=== PATIENT | male | born 1940 | race Caucasian/White ===

== ENCOUNTER → 2018-02-07 | Outpatient (CLI) | payer MEDICARE ==
--- NOTE | 2018-02-07 16:10 | US ---
EXAMINATION TYPE: US duplex aorta DATE OF EXAM: 02/07/2018 COMPARISON: NONE CLINICAL HISTORY: 77-year-old male F17.200 Nicotine dependence. No symptoms per patient Technique: Multiple sonographic images of the abdominal aorta were obtained. FINDINGS: Abdominal Aorta: Proximal: 2.0 x 2.3cm Mid: 2.0 x 1.9cm Distal: 1.5 x 1.6cm Bifurcation: rt 1.3cm lt 1.3cm Atherosclerotic changes noted within IMPRESSION: No sonographic evidence for any significant ectasia or aneurysm of the abdominal aorta.
== END | disposition home or self-care (01) ==
LOC: RADUSWWP 14:12
PROVIDERS: ATTEND Family Medicine
DX: F17.200 Nicotine dependence, unspecified, uncomplicated (principal)
CPT/HCPCS: 93979

== ENCOUNTER → 2018-07-04 | Outpatient (CLI) | payer MEDICARE ==
--- NOTE | 2018-07-04 08:32 | MR ---
EXAMINATION TYPE: MR brain wo con DATE OF EXAM: 07/04/2018 COMPARISON: NONE HISTORY: Unspecified cerebral infarction per order. Mini stroke July 2016 per patient. TECHNIQUE: Multiplanar, multisequence imaging of the brain and brainstem is performed without IV cont rast. FINDINGS: Diffusion weighted images demonstrate no evidence of a recent infarct or other diffusion abnormality. There is no worrisome extra-axial fluid collection. There is ventricular and sulcal prominence consis tent with diffuse cerebral atrophy. Some foci of T2 hyperintensity are seen in the periventricular wh ite matter. Midline structures demonstrate normal morphology. The craniocervical junction appears within normal limits. Normal vascular flow voids are present. The visualized sinuses are clear and the globes are i ntact. IMPRESSION: 1. No evidence of a recent infarct or large old infarct. 2. Background moderate diffuse cerebral atrophy and mild to minimal chronic small vessel ischemic bossman nge.
== END | disposition home or self-care (01) ==
LOC: RADMRIMAIN 07:34
PROVIDERS: ATTEND Family Medicine
DX: I67.82 Cerebral ischemia (principal); G31.9 Degenerative disease of nervous system, unspecified
CPT/HCPCS: 70551

== ENCOUNTER → 2018-10-24 | Outpatient (CLI) | payer MEDICARE ==
--- NOTE | 2018-10-24 12:28 | US ---
EXAMINATION TYPE: US kidneys/renal and bladder DATE OF EXAM: 10/24/2018 COMPARISON: NONE CLINICAL HISTORY: Chronic kidney disease 3 N18.3. EXAM MEASUREMENTS: Right Kidney: 12.3 x 5.3 x 4.4 cm Left Kidney: 11.3 x 4.7 x 4.4 cm Right Kidney: Simple appearing cyst noted measuring 2.3 x 2.0 x 2.1cm Left Kidney: several simple cysts noted, largest measuring 6.5 x 5.0 x 6.7cm, and 2.2 x 2.5 x 2.2cm Bladder: wnl Bilateral Jets seen: Yes IMPRESSION: 1. Bilateral renal cysts.
== END ==
LOC: RADUSWWP 10:44
PROVIDERS: ATTEND Internal Medicine Nephrology
DX: N28.1 Cyst of kidney, acquired (principal)
CPT/HCPCS: 76770

== ENCOUNTER → 2019-02-07 | Outpatient (CLI) | payer MEDICARE ==
--- NOTE | 2019-02-07 12:26 | XR ---
EXAMINATION TYPE: XR pelvis AP view DATE OF EXAM: 02/07/2019 COMPARISON: NONE HISTORY: Pain The osseous structures are intact and arthropathy of the hip joints is noted. Calcification in the pr oximal left femur is nonspecific. Vascular calcifications in the pelvis. No erosive changes. Degenera tive change lower lumbar spine.. No acute fracture is seen. Visualized bowel gas pattern is nonspec ific. IMPRESSION: 1. 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
--- NOTE | 2019-02-07 12:27 | XR ---
EXAMINATION TYPE: XR thoracic spine 2V DATE OF EXAM: 02/07/2019 COMPARISON: NONE HISTORY: Pain Alignment is anatomic. There is no compression deformities. There is multilevel moderate to severe d egenerative disc disease with hypertrophic spurring. Diffuse osteopenia noted. Pedicles intact. Calci fications right upper quadrant may represent gallstones. IMPRESSION: 1. Multilevel degenerative disc disease. 2. Correlate for gallstones.
--- NOTE | 2019-02-07 12:29 | XR ---
EXAMINATION TYPE: XR cervical spine limited DATE OF EXAM: 02/07/2019 COMPARISON: NONE HISTORY: Pain TECHNIQUE: Three views are submitted. FINDINGS: The odontoid is intact. There are no compression deformities. The prevertebral soft tissue structur es are within normal limits. Lung apices are clear. Hypertrophic spurring noted anteriorly. Multileve l facet arthropathy seen. Mild multilevel degenerative disc disease. IMPRESSION: 1. Multilevel hypertrophic and mild degenerative disc disease. 2. Multilevel facet arthropathy. Recommend follow-up MRI to assess for neural foraminal encroachment.
== END | disposition home or self-care (01) ==
LOC: RADXRMAIN 10:29
PROVIDERS: ATTEND Chiropractor
DX: M51.34 Other intervertebral disc degeneration, thoracic region (principal); M50.30 Other cervical disc degeneration, unspecified cervical region; M46.92 Unspecified inflammatory spondylopathy, cervical region; M16.0 Bilateral primary osteoarthritis of hip
CPT/HCPCS: 72040; 72070; 72170

== ENCOUNTER → 2021-02-24 | Outpatient (CLI) | payer MEDICARE ==
--- NOTE | 2021-02-24 13:03 | XR ---
EXAMINATION TYPE: XR Hip Complete RT DATE OF EXAM: 02/24/2021 COMPARISON: NONE HISTORY: Pain TECHNIQUE: 2 views submitted FINDINGS: There is no evidence of erosive change or acute fracture. Concentric narrowing the joint space with hypertrophic change of the acetabulum. Vascular calcificati ons noted. IMPRESSION: 1. Moderate arthropathy correlate for femoral acetabular impingement..
--- NOTE | 2021-02-24 13:59 | US ---
EXAMINATION TYPE: US venous doppler duplex LE RT DATE OF EXAM: 02/24/2021 12:16 PM COMPARISON: NONE CLINICAL HISTORY: M79.661 Pain in Rt lower limb. Pain medial right groin and right upper thigh SIDE PERFORMED: Right TECHNIQUE: The lower extremity deep venous system is examined utilizing real time linear array sonog omkar with graded compression, doppler sonography and color-flow sonography. VESSELS IMAGED: Common Femoral Vein Deep Femoral Vein Greater Saphenous Vein * Femoral Vein Popliteal Vein Small Saphenous Vein * Proximal Calf Veins (* superficial vessels) Right Leg: Negative for DVT IMPRESSION: Grayscale, color doppler, spectral doppler imaging performed of the deep veins of the lo wer extremities. There is normal flow, compressibility, vascular waveforms. Incidental note made of shotty lymphadenopathy in the right groin. Correlate clinically.
--- NOTE | 2021-02-24 14:44 | US ---
EXAMINATION TYPE: US groin RT DATE OF EXAM: 02/24/2021 COMPARISON: NONE CLINICAL HISTORY: M79.661. Medial right groin pain noted after boxing up books.Patient having right l eg venous duplex today too. Couple of medial right groin lymph nodes seen with larger node = 1.7 x 1.1 x 0.8cm. No hernia is note d medial right groin with Valsalva Maneuver performed over area of pain. IMPRESSION: 1. Right inguinal shotty adenopathy with largest measuring short axis of 0.8 cm. Correlate clinically .
== END | disposition home or self-care (01) ==
LOC: RADUSWWP 10:47
PROVIDERS: ATTEND Family Medicine
DX: M79.661 Pain in right lower leg (principal); R59.0 Localized enlarged lymph nodes; M16.11 Unilateral primary osteoarthritis, right hip
CPT/HCPCS: 73502

== ENCOUNTER → 2021-04-02 | Outpatient (CLI) | payer MEDICARE ==
--- NOTE | 2021-04-02 13:04 | US ---
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 Follow up. Patient states he has never had anything come back abnormal with his lymph nodes. Right groin scanned. Largest lymph node measured = 1.8 x 1.1 x 0.7 cm Initial benign-appearing tiny lymph node. More prominent nonspecific right groin lymph node noted aft er this with less well-visualized fatty hilum. No concerning fluid collection or groin hernia. IMPRESSION: As above. Findings could reflect reactive infectious or inflammatory etiology. Advise sh ort-term ultrasound follow-up to reassess in 4-6 weeks time.
== END | disposition home or self-care (01) ==
LOC: RADUSWWP 12:13
PROVIDERS: ATTEND Family Medicine
DX: C85.85 Other specified types of non-Hodgkin lymphoma, lymph nodes of inguinal region and lower limb (principal)

== ENCOUNTER → 2021-07-03 | Outpatient (CLI) | payer MEDICARE ==
--- NOTE | 2021-07-04 08:26 | US ---
EXAMINATION TYPE: US groin RT DATE OF EXAM: 07/03/2021 COMPARISON: NONE CLINICAL HISTORY: R59.0 Localized enlarged lymph nodes. Right groin scanned 2 lymph nodes noted measuring 2.0 x 0.7 x 1.1cm and 1.7 x 1.1 x1.8cm Right groin scanned. Largest lymph node measured = 1.8 x 1.1 x 0.7 cm IMPRESSION: Lymph nodes as noted.
== END | disposition home or self-care (01) ==
LOC: RADUSWWP 16:36
PROVIDERS: ATTEND Family Medicine
DX: R59.0 Localized enlarged lymph nodes (principal)

== ENCOUNTER 2023-01-12 08:21 | Inpatient (IN) | payer MEDICARE ==
--- NOTE | 2023-01-12 09:20 | XR ---
EXAMINATION TYPE: XR Hip Complete RT DATE OF EXAM: 01/12/2023 COMPARISON: 02/24/2021 HISTORY: Pain TECHNIQUE: 2 views submitted FINDINGS: There is concentric narrowing of the joint hypertrophic change of the acetabulum. The questionable de formity involving the femoral neck. IMPRESSION: 1. Arthropathy. CT of the right hip recommended to exclude fracture..
--- NOTE | 2023-01-12 10:27 | ED ---
Fall HPI - General Chief Complaint: Fall Stated Complaint: fall Time Seen by Provider: 01/12/23 08:29 Source: patient, family, RN notes reviewed Mode of arrival: EMS Limitations: no limitations - History of Present Illness Initial Comments: This is an 82-year-old male who presents to the emergency department for a fall. Patient was walking into his PCP's office for his annual physical, when he subsequently tripped on a curb and fell, landing on his right side. Currently complaining of pain to the right hip. He is having difficulty moving the leg d ue to the pain. Pain is controlled when sitting still. Denies hitting his head or any loss of consciousness. Patient denies taking any blood thinners. Patient does not have any surgical history. Denies any fevers, chills, sore throat, cough, dyspnea, chest pain, palpitations, abdominal pain, nausea, vomiting, diarrhea, back pain, or headaches. MD Complaint: fall Loss of Consciousness: none Location: other (Right hip pain) Context: tripped/slipped - Related Data Home Medications Medication Instructions Recorded Confirmed Enalapril [Vasotec] 5 mg PO DAILY 08/16/16 01/12/23 Glimepiride 2 mg PO DAILY 08/16/16 01/12/23 Insulin Glargine,Hum.rec.anlog 15 unit SQ DAILY 08/16/16 01/12/23 [Lantus Solostar] Rosuvastatin [Crestor] 20 mg PO DAILY 08/16/16 01/12/23 sitaGLIPtin [Januvia] 50 mg PO HS 08/16/16 01/12/23 Sildenafil [Revatio] 20 mg PO DAILY PRN 01/12/23 01/12/23 Allergies Allergy/AdvReac Type Severity Reaction Status Date / Time No Known Allergies Allergy Verified 01/12/23 09:36 Review of Systems ROS Statement: Those systems with pertinent positive or pertinent negative responses have been documented in the HPI. ROS Other: All systems not noted in ROS Statement are negative. Past Medical History Past Medical History: Diabetes Mellitus, Hyperlipidemia, Hypertension History of Any Multi-Drug Resistant Organisms: None Reported Past Surgical History: No Surgical Hx Reported Past Psychological History: No Psychological Hx Reported Smoking Status: Former smoker, Never smoker Past Alcohol Use History: None Reported Past Drug Use History: None Reported General Exam Limitations: no limitations General appearance: alert, in no apparent distress Head exam: Present: atraumatic, normocephalic, normal inspection Respiratory exam: Present: normal lung sounds bilaterally. Absent: respiratory distress, wheezes, rales, rhonchi, stridor Cardiovascular Exam: Present: regular rate, normal rhythm, normal heart sounds. Absent: systolic murmur, diastolic murmur, rubs, gallop, clicks Extremities exam: Present: other (Tenderness to palpation over the right greater trochanter. External rotation of the right lower extremity. 2+ DP and TP pulses. Capillary refill less than 1 second.) Neurological exam: Present: alert, oriented X3, CN II-XII intact Psychiatric exam: Present: normal affect, normal mood Skin exam: Present: warm, dry, intact, normal color. Absent: rash Course Vital Signs 01/12/23 01/12/23 01/12/23 08:31 10:34 14:00 Temperature 98 F 98.1 F Pulse Rate 88 86 86 Respiratory 18 18 18 Rate Blood Pressure 208/84 155/93 165/69 O2 Sat by Pulse 100 97 98 Oximetry Medical Decision Making - Medical Decision Making This is an 82-year-old male who presents to the emergency department for a fall and right hip pain. Was pt. sent in by a medical professional or institution? @ -No Did you speak to anyone other than the patient for history? @ -No Did you review nursing and triage notes? @ -Yes, and I agree, it is accurate with regards to the patient's symptoms. Were old charts reviewed? @ -No Differential Diagnosis? @ -Differential Leg Injury: Fracture, dislocation, contusion, this is not meant to be an all-inclusive list. X-rays interpreted by me (1pt min.)? @ -X-ray of the right hip obtained. My interpretation identifies an abnormal appearance to the right femoral neck. CT interpreted by me (1pt min.)? @ -Computed tomography scan of the right hip was obtained. My interpretation identifies a right femur intertrochanteric fracture. What testing was considered but not performed? (CT, X-rays, U/S, labs)? Why? @ -None What meds were considered but not given? Why? @ -None Did you discuss the management of the patient with other professionals? @ -Yes, Dr. Garcia, who advised admission. Did you reconcile home meds? @ -No Was smoking cessation discussed for >3mins.? @ -No Was critical care preformed (if so, how long)? @ -No Were there social determinants of health that impacted care today? How? (Homelessness, low income, unemployed, alcoholism, drug addiction, transportation, low edu. Level, literacy, decrease access to med. care, long-term, rehab)? @ -No Was there de-escalation of care discussed even if they declined? (Discuss DNR or withdrawal of care, Hospice)? @ -No What co-morbidities impacted this encounter? (DM, HTN, Smoking, COPD, CAD, Cancer, CVA, Hep., AIDS, mental health diagnosis, sleep apnea, morbid obesity)? @ -HTN, HLD, DM Was patient admitted / discharged? @ -Admitted. X-rays of the right hip were obtained. Findings could not exclude a femoral neck fracture, and a computed tomography scan of the right hip was obtained. Computed tomography scan of the right hip reveals an acute comminuted mildly displaced proximal right femur intertrochanteric fracture. Case discussed with Dr. Garcia, who advised admission with plan for surgical intervention. Preop lab work obtained. Patient will also be kept NPO in the event surgical intervention is warranted today. Patient admitted to orthopedics with medicine on consult for medical management. Undiagnosed new problem with uncertain prognosis? @ -None Drug Therapy requiring intensive monitoring for toxicity (Heparin, Nitro, Insulin, Cardizem)? @ -None Were any procedures done? @ -None Diagnosis/symptom? @ -Right intertrochanteric fracture Acute, or Chronic, or Acute on Chronic? @ -Acute Uncomplicated (without systemic symptoms) or Complicated (systemic symptoms)? @ -Complicated Side effects of treatment? @ -None Exacerbation, Progression, or Severe Exacerbation] @ -Not applicable Poses a threat to life or bodily function? @ -Yes This case was discussed in detail with the attending ED physician, Dr. Ramirez. Presentation, findings, and treatment plan discussed in detail as well. - Lab Data Result diagrams: 01/12/23 11:34 01/12/23 11:34 - Radiology Data Radiology results: report reviewed, image reviewed Disposition Clinical Impression: Intertrochanteric fracture of right femur Disposition: ADMITTED IP TO THIS HOSP
--- NOTE | 2023-01-12 10:27 | CT ---
EXAMINATION TYPE: CT hip RT wo con CT DLP: 537.2 mGycm, Automated exposure control for dose reduction was used. DATE OF EXAM: 01/12/2023 10:08 AM COMPARISON: Extremity radiograph same day. CLINICAL INDICATION:Male, 82 years old with history of Possible femoral neck fracture on x-ray; PHH, right hip pain from fall TECHNIQUE: Axial images were obtained of the right hip without the use of IV contrast. Additional co bertha and sagittal reformatted images and soft tissue and bone window were obtained for review. 3-D r econstruction was created on a separate workstation. FINDINGS: Diffuse bone demineralization. Acute mildly displaced comminuted intertrochanteric fracture of the proximal right femur identified. Mild shortening demonstrated. There no dislocation. There is surrounding edema identified. Small joint effusion. Mild osteoarthritic changes of the right hip. Re maining visualized osseous structures are intact. Vascular sclerosis demonstrated. Prostatomegaly measuring up to 5.4 cm. IMPRESSION: Acute comminuted mildly displaced proximal right femur intertrochanteric fracture.
[2023-01-12] MEDS ORDERED: HYDROmorphone 1 MG/ML 1 ML SYRINGE IVP PRN (11:30)
[2023-01-12] MEDS ORDERED: ONDANSETRON 4 MG/2 ML VIAL IVP PRN (11:30)
[2023-01-12] MEDS ORDERED: HYDROmorphone 0.5 MG/0.5 ML SYRINGE IVP PRN (11:30)
[2023-01-12] MEDS ORDERED: ACETAMINOPHEN TAB 325 MG TAB PO PRN (11:30)
[2023-01-12] MEDS ORDERED: NALOXONE 0.4 MG/ML 1 ML VIAL IV PRN (11:30)
[2023-01-12 11:55] LABS: Basophils % (A) 0 %; Eosinophils # (A) 0.1 k/uL (0-0.7); Eosinophils % (A) 1 %; HCT 41.3 % (39.0-53.0); HGB 13.9 gm/dL (13.0-17.5); Lymphocytes # (A) 0.9 k/uL (1.0-4.8); Lymphocytes % (A) 8 %; MCH 28.8 pg (25.0-35.0); MCHC 33.7 g/dL (31.0-37.0); MCV 85.4 fL (80.0-100.0); Mean Platelet Volume 9.9; Monocytes # (A) 0.4 k/uL (0-1.0); Monocytes % (A) 4 %; Neutrophils # (A) 9.1 k/uL (1.3-7.7); Neutrophils % (A) 86 %; Platelet Count 127 k/uL (150-450); RBC 4.83 m/uL (4.30-5.90); RDW 13.6 % (11.5-15.5); WBC 10.6 k/uL (3.8-10.6)
[2023-01-12 12:13] LABS: Calcium 9.3 mg/dL (8.4-10.2); Potassium 4.7 mmol/L (3.5-5.1); Total Bilirubin 0.6 mg/dL (0.2-1.3); Total Protein 6.5 g/dL (6.3-8.2)
[2023-01-12 12:43] LABS: Partial Thromboplastin Time 22.9 sec (22.0-30.0); Prothrombin Time 10.6 sec (9.0-12.0)
[2023-01-12] MEDS ORDERED: DEXTROSE 50% SYRINGE 50 ML IVP PRN ×2 (14:58)
[2023-01-12 16:02] LABS: Glucose,Whole Blood 219 mg/dL (70-110)
[2023-01-12] MEDS: INSULIN ASPART (NovoLOG) 100 UNIT/ML VIAL SQ SCH ×2 (17:28→20:46)
--- NOTE | 2023-01-12 18:10 | P.CONS ---
History of Present Illness - Reason for Consult Consult date: 01/12/23 Medical Management Requesting physician: Jhonatan Garcia - History of Present Illness History of Presenting Illness: Patient is a very pleasant 82-year-old male with a past medical history of hypertension, hyperlipidemia, chronic kidney disease stage III, and insulin- dependent diabetes mellitus. He presented to the emergency department status post mechanical fall. Patient was at his PCPs office today for his annual physical when he subsequently tripped on a curb falling onto his right side and immediately felt pain to his right hip with difficulty moving right leg. Patient underwent full evaluation in the emergency department. X-ray right hip revealed arthroplathy with concentric narrowing of the joint and hypertrophic change of the acetabulum and questionable deformity involving the femoral neck. CT hip was then completed revealing acute comminuted mildly displaced proximal right femoral intertrochanteric fracture. Labs completed and also reviewed. CBC unremarkable. BMP revealing mildly elevated renal function with BUN of 29, creatinine 1.37, and GFR of 47 with baseline creatinine of 1.5. Patient was admitted under orthopedic surgery team and we were consulted for preoperative clearance and medical management. Patient seen and fully evaluated at bedside. Patient currently resting comfortably reports pain in right hip is currently controlled "as long as I do not move". Movement and sensation of right foot remains intact. Patient denies having any other injuries or pain at this time. Blood glucose level slightly elevated at 235 with repeat of 219. Patient is currently tentatively scheduled to undergo gamma nail for right intertrochanteric hip fracture tomorrow afternoon at 3:[address] Garcia. Patient denies having any headache, lightheadedness, dizziness, chest pain, palpitations, shortness of breath, or experiencing any numbness or focal weakness in his extremities. Review of systems: Pertinent positives and negatives as discussed in HPI, a complete review of sys tems was performed and all other systems are negative. Physical exam: Vital signs reviewed and stable. General: Nontoxic, no distress and appears stated age. Derm: Skin warm and dry, normal coloration for ethnicity. Head: Atraumatic, normocephalic and symmetric. Eyes: EOMs intact, no lid lag, and anicteric sclera Mouth: no lip lesions, mucus membranes moist Cardiovascular: regular rate and rhythm with normal S1S2, soft systolic murmur, positive posterior tibial pulses bilaterally, and cap refill < 2 seconds. Lungs: Respirations even, regular, and unlabored on room air. Lungs CTA bilaterally, no rhonchi, no rales, no wheezing, and no accessory muscle usage. Abdominal: soft, nontender to palpation, no guarding, no appreciable organomegaly Ext: Movement and sensation and intact. Patient with limited movement of right lower extremity secondary to femur fracture and reports of pain with movement. No gross muscle atrophy, no edema, no contractures Neuro: Speech clear, face symmetrical and CN II-XII grossly intact with no noted focal neuro deficits Psych: Alert and oriented to person, place, time, and situation. Appropriate and pleasant affect. Assessment and Plan of Care: Preoperative clearance for gamma nail for right intertrochanteric hip fracture Acute comminuted mildly displaced proximal right femoral intertrochanteric fracture -Patient's MET's score is > 4. Patient lives independently and performs all ADLs independently and is able to walk one block or up a flight of stairs without difficulty prior to fall. -NSQIP surgical risk calculator completed. Patient scoring below average for risk of serious complication with patient's risks being 6.8% and average of 8.4%, average risk of cardiac complication with cardiac risk of 1.1% and average risk of 1.1% and a below average risk of at 0.7% with average risk of 2.9%. -With METS score > 4 and a below average risk of serious complications, from a medical perspective, patient is medically optimized to proceed with planned surgical procedure without any further need for testing at this time. Insulin-dependent diabetes mellitus with hyperglycemia -Glucose averaging 219-235 since admission. Reordered patient's home Levemir and patient placed on glycemic protocol with NovoLog sliding scale to maintain tight glycemic control throughout hospitalization and recovery period. -We will follow up on hemoglobin A1c. Hypertension Hypertensive urgency, secondary to acute pain -Upon arrival to this facility patient was in hypertensive urgency with blood pressure 208/84, uncontrolled hypertension likely secondary to acute uncontrolled pain from right femoral fracture. -Currently blood pressure much better improved at 165/69 with heart rate of 86. -Reviewed home medication regimen. Patient placed on lisinopril 10 mg daily and substitute for Vasotec secondary to hospital availability. Hyperlipidemia -Recommend following a heart healthy diet. Patient to continue daily medication regimen with atorvastatin 40 mg daily. Chronic kidney disease stage III -Labs reviewed. BMP revealing slightly elevated renal function with BUN of 29, creatinine 1.37, and GFR 47. It appears patient's baseline creatinine is around 1.5. -Renal function appears to be at baseline, we will place patient on gentle IV fluid hydration with 0.9% normal saline at 100 mL's per hour pending planned surgical procedure scheduled for tomorrow afternoon. Fluids may be discontinued after surgery is completed and patient has resumed oral intake. Thank you for allowing us to participate in the care of this pleasant patient. Do not hesitate to contact us with questions. Someone can be reached from the [facility] hospitalist group all hours of the day at [phone] or via [employer]. Caesar Zendejas NP rendered care for this patient independently, reviewed the findings and plan as documented in the note above. I did not physically speak with or examine the patient on this date. Past Medical History Past Medical History: Diabetes Mellitus, Hyperlipidemia, Hypertension History of Any Multi-Drug Resistant Organisms: None Reported Past Surgical History: No Surgical Hx Reported Past Anesthesia/Blood Transfusion Reactions: No Reported Reaction Past Psychological History: No Psychological Hx Reported Smoking Status: Former smoker, Never smoker Past Alcohol Use History: None Reported Past Drug Use History: None Reported Medications and Allergies Home Medications Medication Instructions Recorded Confirmed Type Enalapril [Vasotec] 5 mg PO DAILY 08/16/16 01/12/23 History Glimepiride 2 mg PO DAILY 08/16/16 01/12/23 History Insulin Glargine,Hum.rec.anlog 15 unit SQ DAILY 08/16/16 01/12/23 History [Lantus Solostar] Rosuvastatin [Crestor] 20 mg PO DAILY 08/16/16 01/12/23 History sitaGLIPtin [Januvia] 50 mg PO HS 08/16/16 01/12/23 History Sildenafil [Revatio] 20 mg PO DAILY PRN 01/12/23 01/12/23 History Allergies Allergy/AdvReac Type Severity Reaction Status Date / Time No Known Allergies Allergy Verified 01/12/23 09:36 Physical Exam Osteopathic Statement: *. No significant issues noted on an osteopathic structural exam other than those noted in the History and Physical/Consult. Vitals: Vital Signs Temp Pulse Pulse Resp BP BP Pulse Ox 01/12/23 14:00 98.7 F 86 69 16 165/69 181/75 98 01/12/23 10:34 98.1 F 86 18 155/93 97 01/12/23 08:31 98 F 88 18 208/84 100 Intake and Output 01/12/23 01/12/23 01/12/23 06:59 14:59 22:59 Other: Weight 81.647 kg Results CBC & Chem 7: 01/12/23 11:34 01/12/23 11:34 Labs: Abnormal Lab Results - Last 24 Hours (Table) 01/12/23 01/12/23 01/12/23 Range/Units 11:34 11:34 16:00 Plt Count 127 L (150-450) k/uL Neutrophils # 9.1 H (1.3-7.7) k/uL Lymphocytes # 0.9 L (1.0-4.8) k/uL BUN 29 H (9-20) mg/dL Creatinine 1.37 H (0.66-1.25) mg/dL Glucose 235 H (74-99) mg/dL POC Glucose (mg/dL) 219 H (70-110) mg/dL
[2023-01-12 20:20] LABS: Glucose,Whole Blood 144 mg/dL (70-110)
[2023-01-12] MEDS: SODIUM CHLORIDE 0.9% 1,000 ML IV SCH (20:47)
[2023-01-13] MEDS: SODIUM CHLORIDE 0.9% 1,000 ML IV SCH ×2 (04:09→14:32)
[2023-01-13 06:07] LABS: Glucose,Whole Blood 149 mg/dL (70-110)
[2023-01-13] MEDS: INSULIN ASPART (NovoLOG) 100 UNIT/ML VIAL SQ SCH ×4 (06:30→21:33)
[2023-01-13] MEDS: INSULIN DETEMIR (LEVEMIR) 100 UNIT/ML SYR SQ SCH (06:30)
[2023-01-13 08:54] LABS: Glucose,Whole Blood 154 mg/dL (70-110)
[2023-01-13 09:27] LABS: African American GFR (CKD) 49.2 (60.0-200.0); Albumin 3.8 g/dL (3.8-4.9); Albumin/Globulin Ratio 1.81 (1.60-3.17); Anion Gap 11.5 mmol/L (10.00-18.00); BUN/Creat Ratio 17.4 Ratio (12.00-20.00); Blood Urea Nitrogen 26.1 mg/dL (9.0-27.0); Calcium 8.7 mg/dL (8.7-10.3); Carbon Dioxide 26.5 mmol/L (20.0-27.5); Globulin 2.1 g/dL (1.6-3.3); Magnesium 1.6 mg/dL (1.5-2.4); Non-African American GFR(CKD) 42.4 (60.0-200.0); Potassium 4.2 mmol/L (3.5-5.5); Total Bilirubin 0.6 mg/dL (0.30-1.20); Total Protein 5.9 g/dL (6.2-8.2)
[2023-01-13] MEDS: lisinopriL 10 MG TAB PO SCH (09:57)
[2023-01-13] MEDS: ATORVASTATIN 40 MG TAB PO SCH (09:57)
[2023-01-13 11:48] LABS: Glucose,Whole Blood 165 mg/dL (70-110)
[2023-01-13 11:50] LABS: HCT 39.2 % (39.0-53.0); HGB 13.1 gm/dL (13.0-17.5); Hypochromasia Slight; MCHC 33.5 g/dL (31.0-37.0); Mean Platelet Volume 12.9; RBC 4.24 m/uL (4.30-5.90); RDW 14.1 % (11.5-15.5); WBC 5.9 k/uL (3.8-10.6)
[2023-01-13 11:51] LABS: MCV 92.4 fL (80.0-100.0)
[2023-01-13 12:51] LABS: Platelet Count 121 k/uL (150-450)
--- NOTE | 2023-01-13 12:56 | P.HPOR ---
History of Present Illness H&P Date: 01/13/23 Chief Complaint: Right Hip fracture Patient is an 82-year-old male seen at bedside this am. He presented to the emergency department for a fall yesterday 01/12/23. Patient was walking into his PCP's office for his annual physical, when he subsequently tripped on a curb and fell, landing on his right side. Currently complaining of pain to the right hip. He is having difficulty moving the leg due to the pain. Pain is controlled when sitting still. Denies hitting his head or any loss of consciousness. Patient denies taking any blood thinners. Patient does not have any surgical history. he Denies any fevers, chills, sore throat, cough, dyspnea, chest pain, palpitations, abdominal pain, nausea, vomiting, diarrhea, back pain, or headaches. Review of Systems All systems: negative Constitutional: Denies chills, Denies fever Eyes: denies blurred vision, denies pain Ears, nose, mouth and throat: Denies headache, Denies sore throat Cardiovascular: Denies chest pain, Denies shortness of breath Respiratory: Denies cough Gastrointestinal: Denies abdominal pain, Denies diarrhea, Denies nausea, Denies vomiting Musculoskeletal: Denies myalgias Integumentary: Denies pruritus, Denies rash Neurological: Denies numbness, Denies weakness Psychiatric: Denies anxiety, Denies depression Endocrine: Denies fatigue, Denies weight change Past Medical History Past Medical History: Diabetes Mellitus, Hyperlipidemia, Hypertension History of Any Multi-Drug Resistant Organisms: None Reported Past Surgical History: No Surgical Hx Reported Past Anesthesia/Blood Transfusion Reactions: No Reported Reaction Past Psychological History: No Psychological Hx Reported Smoking Status: Former smoker, Never smoker Past Alcohol Use History: None Reported Past Drug Use History: None Reported Medications and Allergies Home Medications Medication Instructions Recorded Confirmed Type Enalapril [Vasotec] 5 mg PO DAILY 08/16/16 01/12/23 History Glimepiride 2 mg PO DAILY 08/16/16 01/12/23 History Insulin Glargine,Hum.rec.anlog 15 unit SQ DAILY 08/16/16 01/12/23 History [Lantus Solostar] Rosuvastatin [Crestor] 20 mg PO DAILY 08/16/16 01/12/23 History sitaGLIPtin [Januvia] 50 mg PO HS 08/16/16 01/12/23 History Sildenafil [Revatio] 20 mg PO DAILY PRN 01/12/23 01/12/23 History Allergies Allergy/AdvReac Type Severity Reaction Status Date / Time No Known Allergies Allergy Verified 01/12/23 09:36 Physical Examination GEN: NAD, MAA, AOX5 Right lower extremity: No wounds. Shortened externally rotated right leg. ROM of hip not tested due to fracture. Knee, calf are SNT. NVI with motor, sensation and perfusion throughout RLE. 2+ DP pulse and less than 2 sec cap refill present distally. Results HIP CT and xray show IT fracture of right femur - Labs Labs: Abnormal Lab Results - Last 24 Hours (Table) 01/12/23 01/12/23 01/12/23 Range/Units 14:58 16:00 20:18 RBC (4.30-5.90) m/uL Est GFR (CKD-EPI)AfAm (60.0-200.0) Est GFR (CKD-EPI)NonAf (60.0-200.0) Glucose (70-110) mg/dL POC Glucose (mg/dL) 219 H 144 H (70-110) mg/dL Hemoglobin A1c 9.1 H (0.0-6.0) % Total Protein (6.2-8.2) g/dL 01/13/23 01/13/23 01/13/23 Range/Units 06:00 06:00 06:05 RBC 4.24 L (4.30-5.90) m/uL Est GFR (CKD-EPI)AfAm 49.2 L (60.0-200.0) Est GFR (CKD-EPI)NonAf 42.4 L (60.0-200.0) Glucose 142 H (70-110) mg/dL POC Glucose (mg/dL) 149 H (70-110) mg/dL Hemoglobin A1c (0.0-6.0) % Total Protein 5.9 L (6.2-8.2) g/dL 01/13/23 01/13/23 Range/Units 08:50 11:47 RBC (4.30-5.90) m/uL Est GFR (CKD-EPI)AfAm (60.0-200.0) Est GFR (CKD-EPI)NonAf (60.0-200.0) Glucose (70-110) mg/dL POC Glucose (mg/dL) 154 H 165 H (70-110) mg/dL Hemoglobin A1c (0.0-6.0) % Total Protein (6.2-8.2) g/dL H & H 01/12/23 01/13/23 Range/Units 11:34 06:00 Hgb 13.9 13.1 (13.0-17.5) gm/dL Hct 41.3 39.2 (39.0-53.0) % Coagulation 01/12/23 Range/Units 11:34 INR 1.0 (<1.2) Result Diagrams: 01/13/23 06:00 01/13/23 06:00 Assessment and Plan (1) Intertrochanteric fracture of right femur Narrative/Plan: Plan is to proceed with surgical intervention this afternoon including gamma nail for right IT fracture. He is medically stable. Risks, benefits, and questions have been addressed. He desires to proceed. He will continue with post op orthopedic protocol, medical management, and will likely need placement. Current Visit: Yes Status: Acute Priority: Medium Code(s): S72.141A - DISPLACED INTERTROCHANTERIC FRACTURE OF RIGHT FEMUR, INIT SNOMED Code(s): 720507348 Time with Patient: Less than 30
[2023-01-13 13:02] VITALS: BMI 25.1
[2023-01-13 14:56] LABS: Glucose,Whole Blood 156 mg/dL (70-110)
[2023-01-13] MEDS ORDERED: LACTATED RINGERS 1,000 ML IV ONE (14:56)
[2023-01-13] MEDS ORDERED: LIDOCAINE 1% (10MG/ML) FOR IV START INTRADERMA PRN (15:10)
[2023-01-13] MEDS ORDERED: DEXAMETHASONE SOD PHOSPHATE 4 MG/ML 1 ML VIAL IV ONE (15:10)
[2023-01-13] MEDS ORDERED: ONDANSETRON 4 MG/2 ML VIAL IVP ONE ×2 (15:10)
[2023-01-13] MEDS ORDERED: DEXAMETHASONE SOD PHOSPHATE 4 MG/ML 1 ML VIAL IVP ONE (15:10)
--- NOTE | 2023-01-13 15:31 | P.PN ---
Subjective Progress Note Date: 01/13/23 History of Presenting Illness: Patient is a very pleasant 82-year-old male with a past medical history of hypertension, hyperlipidemia, chronic kidney disease stage III, and insulin- dependent diabetes mellitus. He presented to the emergency department status post mechanical fall on 01/12/23. Patient was at his PCPs office for his annual physical when he subsequently tripped on a curb falling onto his right side and immediately felt pain to his right hip with difficulty moving right leg. Patient underwent full evaluation in the emergency department. X-ray right hip revealed arthroplathy with concentric narrowing of the joint and hypertrophic change of the acetabulum and questionable deformity involving the femoral neck. CT hip was then completed revealing acute comminuted mildly displaced proximal right femoral intertrochanteric fracture. Labs completed and also reviewed. CBC unremarkable. BMP revealing mildly elevated renal function with BUN of 29, creatinine 1.37, and GFR of 47 with baseline creatinine of 1.5. Patient was admitted under orthopedic surgery team and we were consulted for preoperative clearance and medical management. Patient is scheduled to undergo gamma nail for right intertrochanteric hip fracture this afternoon at 3:[address] Garcia. Physical exam: Vital signs reviewed and stable. General: Nontoxic, no distress and appears stated age. Derm: Skin warm and dry, normal coloration for ethnicity. Head: Atraumatic, normocephalic and symmetric. Eyes: EOMs intact, no lid lag, and anicteric sclera Mouth: no lip lesions, mucus membranes moist Cardiovascular: regular rate and rhythm with normal S1S2, soft systolic murmur, positive posterior tibial pulses bilaterally, and cap refill < 2 seconds. Lungs: Respirations even, regular, and unlabored on room air. Lungs CTA bilaterally, no rhonchi, no rales, no wheezing, and no accessory muscle usage. Abdominal: soft, nontender to palpation, no guarding, no appreciable organomegaly Ext: Movement and sensation and intact. Patient with limited movement of right lower extremity secondary to femur fracture and reports of pain with movement. RLE with right external rotation this morning and no noted shortening. Neuro: Speech clear, face symmetrical and CN II-XII grossly intact with no noted focal neuro deficits. Psych: Alert and oriented to person and place Assessment and Plan of Care: Morning labs reviewed and stable. CBC revealing stable hemoglobin of 13.1 and CMP remains unremarkable with the exception of mildly elevated glucose levels. Patient slightly confused this morning percent at bedside. Currently patient answering questions appropriately but did admit to not realizing where he was earlier this morning. Patient has been receiving Dilaudid for pain management which is likely the reason for confusion. Patient did not hit head during the fall and is not on blood tenderness. Preoperative clearance for gamma nail for right intertrochanteric hip fracture Acute comminuted mildly displaced proximal right femoral intertrochanteric fracture -Patient's MET's score is > 4. Patient lives independently and performs all ADLs independently and is able to walk one block or up a flight of stairs without difficulty prior to fall. -NSQIP surgical risk calculator completed. Patient scoring below average for risk of serious complication with patient's risks being 6.8% and average of 8.4%, average risk of cardiac complication with cardiac risk of 1.1% and average risk of 1.1% and a below average risk of at 0.7% with average risk of 2.9%. -With METS score > 4 and a below average risk of serious complications, from a medical perspective, patient is medically optimized to proceed with planned surgical procedure without any further need for testing at this time. -Patient is scheduled to undergo gamma nail for right intertrochanteric hip fracture this afternoon at 3:[address] Garcia. Insulin-dependent diabetes mellitus with hyperglycemia -Glucose averaging from 144-219 over the past 24 hours. Patient to continue Levemir 15 units daily along with glycemic protocol and NovoLog sliding scale to maintain tight glycemic control throughout hospitalization and recovery period. -Hemoglobin A1c is 9.1% Hypertension Hypertensive urgency, secondary to acute pain -Upon arrival to this facility patient was in hypertensive urgency with blood pressure 208/84, uncontrolled hypertension likely secondary to acute uncontrolled pain from right femoral fracture. -Currently blood pressures much better controlled with morning blood pressure 163/69 and heart rate 89. -Continue lisinopril 10 mg daily in substitute for Vasotec secondary to hospital availability. Hyperlipidemia -Recommend following a heart healthy diet. Patient to continue daily medication regimen with atorvastatin 40 mg daily. Chronic kidney disease stage III -Labs reviewed. BMP reviewed showing stable renal function with BUN 26.1, creatinine 1.5, and GFR 42.4 with baseline creatinine is around 1.5. -Renal function appears to be at baseline, we will continue with gentle IV fluid hydration with 0.9% normal saline at 100 mL's per hour until completion of surgery and IV fluids may be discontinued after surgery is completed and patient has resumed oral intake. Thank you for allowing us to participate in the care of this pleasant patient. Do not hesitate to contact us with questions. Someone can be reached from the [facility] hospitalist group all hours of the day at [phone] or via [facility] [employer] [facility]. Caesar Zendejas NP rendered care for this patient independently, reviewed the findings and plan as documented in the note above. I did not physically speak with or examine the patient on this date. Objective - Vital Signs Vital signs: Vital Signs Temp 98.9 F 01/13/23 08:04 Pulse 89 01/13/23 08:04 Resp 14 01/13/23 08:04 BP 163/69 01/13/23 08:04 Pulse Ox 95 01/13/23 08:04 FiO2 Intake & Output 01/12/23 01/13/23 01/13/23 18:59 06:59 18:59 Intake Total 10 Output Total 350 0 Balance -350 10 Weight 81.647 kg Intake: IV 10 Invasive Line 1 10 Output: Urine 350 0 Other: Voiding Method Urinal - Labs CBC & Chem 7: 01/14/23 06:06 01/13/23 06:00 Labs: Abnormal Lab Results - Last 24 Hours (Table) 01/12/23 01/12/23 01/12/23 Range/Units 11:34 11:34 14:58 Plt Count 127 L (150-450) k/uL Neutrophils # 9.1 H (1.3-7.7) k/uL Lymphocytes # 0.9 L (1.0-4.8) k/uL BUN 29 H (9-20) mg/dL Creatinine 1.37 H (0.66-1.25) mg/dL Glucose 235 H (74-99) mg/dL POC Glucose (mg/dL) (70-110) mg/dL Hemoglobin A1c 9.1 H (0.0-6.0) % 01/12/23 01/12/23 01/13/23 Range/Units 16:00 20:18 06:05 Plt Count (150-450) k/uL Neutrophils # (1.3-7.7) k/uL Lymphocytes # (1.0-4.8) k/uL BUN (9-20) mg/dL Creatinine (0.66-1.25) mg/dL Glucose (74-99) mg/dL POC Glucose (mg/dL) 219 H 144 H 149 H (70-110) mg/dL Hemoglobin A1c (0.0-6.0) %
[2023-01-13] MEDS ORDERED: fentaNYL (PF) 50 MCG/ML 2 ML AMP ONE (15:53)
[2023-01-13] MEDS ORDERED: PROPOFOL 10 MG/ML 20 ML VIAL IV ONE (15:53)
[2023-01-13] MEDS ORDERED: LIDOCAINE 2% INJ 20 MG/ML (2 ML VIAL) ONE (15:53)
[2023-01-13] MEDS ORDERED: SUCCINYLCHOLINE CHLORIDE 200 MG/10 ML VIAL IV ONE (15:53)
[2023-01-13] MEDS ORDERED: PHENYLEPHRINE-0.9% NACL SYG 1,000 MCG/10 ML SYRINGE ONE (15:53)
[2023-01-13] MEDS ORDERED: ePHEDrine 50 MG/ML 1 ML VIAL ONE (15:53)
[2023-01-13] MEDS ORDERED: MIDAZOLAM 2 MG/2 ML VIAL ONE (15:53)
[2023-01-13] MEDS ORDERED: HYDROcodone/APAP 10-325MG 1 EACH TAB PO PRN (16:11)
[2023-01-13] MEDS ORDERED: HYDROcodone/APAP 5-325MG 1 EACH TAB PO PRN (16:11)
[2023-01-13] MEDS ORDERED: HYDROmorphone 0.5 MG/0.5 ML SYRINGE IVP PRN ×3 (16:11)
[2023-01-13] MEDS ORDERED: bisacodyL 10 MG SUPP RECTAL PRN (16:11)
[2023-01-13] MEDS ORDERED: MAGNESIUM HYDROXIDE 2,400 MG/10 ML CUP PO PRN (16:11)
[2023-01-13] MEDS ORDERED: NA PHOS,M-B/NA PHOS,DI-BA 133 ML ENEMA RECTAL PRN (16:11)
[2023-01-13] MEDS ORDERED: ceFAZolin 1,000 MG in SODIUM CHLORIDE 0.9% 1,000 ML IRRIGATION ONE (16:21)
--- NOTE | 2023-01-13 17:19 | FL ---
Intraoperative/procedural fluoroscopic services were provided. Total fluoroscopy time is 40 seconds w ith a total of 2 submitted images to PACS. Please see the operative/procedural note for further carmina ls. DAP: 3.8314
[2023-01-13 17:20] LABS: Glucose,Whole Blood 213 mg/dL (70-110)
[2023-01-13] MEDS: LACTATED RINGERS 1,000 ML IV SCH ×2 (18:00)
[2023-01-13 20:46] LABS: Glucose,Whole Blood 229 mg/dL (70-110)
[2023-01-13] MEDS: ASPIRIN 81 MG PO SCH (21:33)
[2023-01-13] MEDS: SENNOSIDES-DOCUSATE SODIUM 1 EACH TAB PO SCH (21:33)
--- NOTE | 2023-01-13 23:09 | OP ---
OPERATIVE REPORT DATE OF SERVICE : 01/13/2023 PREOPERATIVE DIAGNOSIS: Right intertrochanteric hip fracture. POSTOPERATIVE DIAGNOSIS: Right intertrochanteric hip fracture. PROCEDURES PERFORMED: Right intramedullary hip screw fixation for right intertrochanteric hip fracture. ANESTHESIA: General endotracheal. ESTIMATED BLOOD LOSS: 25 mL. TOURNIQUET: None. DRAINS: None. COMPLICATIONS: None apparent. DISPOSITION: Postanesthesia care unit. INDICATIONS: Mr. Mendoza is a very pleasant 82-year-old male, who slipped going up the steps to his primary care physician's office yesterday. He had immediate right hip pain. He was brought [facility] ER via ambulance. Workup including x-rays and CT scan revealed a minimally displaced right intertrochanteric hip fracture. He is admitted to my service. Medical Service saw him and cleared him for surgery. Mr. Mendoza is an independent ambulator. He lives independently at home. Recommendation was for intramedullary hip screw fixation for his right intertrochanteric hip fracture. The risks of procedure were discussed with him and his son in detail. These risks include, but are not limited to risk of infection, nerve damage, bleeding, pain, and a small risk of deep vein thrombosis which could lead to fatal pulmonary embolism. Further risks include failure of the fracture to heal, hardware irritation and fracture about the hardware. All of his questions with regard to the procedure were answered to his satisfaction. Appropriate informed consent was obtained. DESCRIPTION OF THE PROCEDURE: The patient was identified in the preoperative holding area. Surgical site was marked by both the patient and myself. He was given 2 grams of Ancef IV for prophylactic purposes. He was then transported to the operative suite. He was placed supine on the operating room table. A general anesthetic was then administered and dosed per the Anesthesia Department without apparent complication. He was then placed onto the fracture table, well-padded in preparation for surgery. The fracture was then reduced utilizing fluoroscopic imaging with traction and rotation. When we had an anatomic reduction, we proceeded. The patient's right lower extremity was then prepped and draped in usual sterile fashion. Standard surgical pause was undertaken to ensure that we were operating the correct site and that appropriate preoperative antibiotics were given. All staff were in agreement, and we proceeded. The tip of the greater trochanter was identified utilizing fluoroscopy. An approximate 3 cm incision starting at the tip of the greater trochanter and extending proximally in line with the shaft of the femur was then made with a #10 blade scalpel. Dissection was carried down sharply to the tensor fascia. The tensor fascia was then incised in line with the incision. This gave me good exposure to the tip of the greater trochanter. The awl was then utilized to place the threaded guide pin on the medial aspect of the greater trochanter. The threaded guide pin was then advanced down the shaft of the femur. Again, its placement was confirmed with fluoroscopic imaging. I then utilized the starting drill to gain access to the proximal femur. The threaded guide pin was then removed and this was then replaced with a ball-tip guidewire, which was placed down the shaft of the femur. Again, intramedullary placement of the ball- tipped guide was confirmed with fluoroscopic imaging. I then proceeded to ream the femoral canal. I started with a 9 mm reamer and incrementally increased up to a 13 mm reamer. This was done to accept the gamma nail. I then had the [employer] correspondence representative open an 180 mm x 11 mm x 125 degree gamma nail. This was placed onto the pallet stone inserter on the back table. The gamma nail was then inserted over the ball-tipped guidewire. Again, its placement was confirmed with fluoroscopic imaging. I then proceeded with placement of the hip screw. A 2nd small incision was then made on the lateral thigh. The threaded guide pin was then advanced into the center of the femoral head on both AP and lateral views. Again, this was done utilizing fluoroscopic imaging. The tip-apex distance was appropriate. I then measured for length. The drill was set to 100 mm. The threaded guide pin was then over-drilled under fluoroscopic imaging. I then had the correspondence representative open a 100 mm x 10 mm partially-threaded cannulated hip screw. This was then placed over the threaded guide pin and was inserted deep into the center of the femoral head. Mr. Mendoza had outstanding bone quality. The hip screw had excellent purchase in bone. When it was fully seated, the tip-apex distance was appropriate. I then proceeded to compress the fracture. We then placed the threaded set screw. This was tightened fully and then backed off 1/4 turn to allow for compression at the fracture site. I then proceeded with placement of the distal static screw. A third small stab incision was made on the lateral thigh. A 5 mm x 40 mm screw was then inserted through the nail in the static position. This was also done under fluoroscopic imaging. The length of the screw was appropriate and it was placed through the center of the nail. At this point, no further work was deemed necessary. Final AP and lateral views were taken. The nail was placed intramedullary. The hip screw was placed through the nail and was deep into the center of the femoral head on both AP and lateral views. The tip- apex distance was appropriate. The distal screw was placed through the nail and was of appropriate length. At this point in time, no further work was deemed necessary. The wounds were then thoroughly irrigated with sterile saline solution with antibiotic added. The tensor fascia was closed with 0 Vicryl interrupted suture. The subcutaneous tissue was closed with 2-0 Vicryl interrupted suture and the skin was closed with stainless steel michelle. Sterile compressive dressings were then applied. All sponge and needle counts were deemed correct prior to closure. The patient tolerated the procedure without apparent complication. He was transferred to recovery room in stable condition. MMFAYL / MARIPOSAN: [id number] /
[2023-01-14] MEDS: SODIUM CHLORIDE 0.9% 1,000 ML IV SCH ×3 (02:38→15:20)
[2023-01-14 06:30] LABS: Glucose,Whole Blood 190 mg/dL (70-110)
[2023-01-14] MEDS: INSULIN ASPART (NovoLOG) 100 UNIT/ML VIAL SQ SCH ×4 (06:30→22:34)
[2023-01-14] MEDS ORDERED: HYDROmorphone 0.5 MG/0.5 ML SYRINGE IVP PRN (07:00)
[2023-01-14] MEDS ORDERED: METOCLOPRAMIDE 5 MG/ML 2 ML VIAL IVP PRN (07:00)
[2023-01-14] MEDS: INSULIN DETEMIR (LEVEMIR) 100 UNIT/ML SYR SQ SCH (07:49)
[2023-01-14 08:45] LABS: Basophils # (A) 0.01 X 10*3/uL (0.00-0.10); Basophils % (A) 0.1 %; Eosinophils # (A) 0.02 X 10*3/uL (0.04-0.35); Eosinophils % (A) 0.2 %; HGB 12.5 g/dL (13.0-17.0); Immature Grans, Automated 0.5 %; Lymphocytes # (A) 0.71 X 10*3/uL (0.90-5.00); Lymphocytes % (A) 7.7 %; MCH 28.7 pg (27.0-32.0); MCHC 32.9 g/dL (32.0-37.0); MCV 87.2 fL (80.0-97.0); Mean Platelet Volume 12.9 fL (9.5-12.2); Monocytes % (A) 7.6 %; NRBC Per 100 WBC 0 /100 WBCS (0.0-0.0); Neutrophils # (A) 7.71 X 10*3/uL (1.80-7.70); Neutrophils % (A) 83.9 %; Platelet Count 120 X 10*3/uL (140-440); RBC 4.36 X 10*6/uL (4.40-5.60); RDW 13.8 % (11.5-14.5)
[2023-01-14] MEDS: ASPIRIN 81 MG PO SCH ×2 (10:23→20:51)
[2023-01-14] MEDS: ATORVASTATIN 40 MG TAB PO SCH (10:23)
[2023-01-14] MEDS: lisinopriL 10 MG TAB PO SCH (10:23)
[2023-01-14 11:49] LABS: Glucose,Whole Blood 254 mg/dL (70-110)
[2023-01-14] MEDS: MULTIVITAMINS, THERA 1 EACH TAB PO SCH (12:28)
[2023-01-14] MEDS: traMADol 50 MG TAB PO PRN (12:28)
--- NOTE | 2023-01-14 14:09 | P.PN ---
Subjective Progress Note Date: 01/14/23 Principal diagnosis: Right IT hip fracture Patient is seen at bedside this morning. He is postop day #1 from Gamma nail for right IT hip fracture. He has pain at the surgical site as expected but denies any new complaints. He denies numbness, tingling or calf pain. Review of systems is negative for fever, chills, chest pain, shortness of breath or other Objective - Vital Signs Vital signs: Vital Signs Temp 98.6 F 01/14/23 13:13 Pulse 104 H 01/14/23 13:13 Resp 16 01/14/23 13:13 BP 115/67 01/14/23 13:13 Pulse Ox 95 01/14/23 13:13 FiO2 Intake & Output 01/13/23 01/14/23 01/14/23 18:59 06:59 18:59 Intake Total 1031 600 Output Total 150 900 Balance 881 -300 Weight 81.647 kg Intake: IV 1031 Oral 600 Output: Urine 125 900 Estimated Blood Loss 25 Other: Voiding Method Urinal Urinal Urinal - Exam Inspection reveals a benign surgical wound. There is no active bleeding or drainage. Neurovascular status is intact throughout the lower extremity with motor and sensation fully intact. Calf is soft and nontender. 2+ dorsalis pedis pulse and less than 2 second cap refill is present. - Constitutional General appearance: Present: no acute distress - Labs CBC & Chem 7: 01/14/23 06:06 01/13/23 06:00 Labs: Abnormal Lab Results - Last 24 Hours (Table) 01/13/23 01/13/23 01/13/23 Range/Units 14:55 17:18 20:44 RBC (4.40-5.60) X 10*6/uL Hgb (13.0-17.0) g/dL Hct (39.6-50.0) % Plt Count (140-440) X 10*3/uL MPV (9.5-12.2) fL Immature Gran # (0.00-0.04) X 10*3/uL Neutrophils # (1.80-7.70) X 10*3/uL Lymphocytes # (0.90-5.00) X 10*3/uL Eosinophils # (0.04-0.35) X 10*3/uL POC Glucose (mg/dL) 156 H 213 H 229 H (70-110) mg/dL 01/14/23 01/14/23 01/14/23 Range/Units 06:06 06:28 11:46 RBC 4.36 L (4.40-5.60) X 10*6/uL Hgb 12.5 L (13.0-17.0) g/dL Hct 38.0 L (39.6-50.0) % Plt Count 120 L (140-440) X 10*3/uL MPV 12.9 H (9.5-12.2) fL Immature Gran # 0.05 H (0.00-0.04) X 10*3/uL Neutrophils # 7.71 H (1.80-7.70) X 10*3/uL Lymphocytes # 0.71 L (0.90-5.00) X 10*3/uL Eosinophils # 0.02 L (0.04-0.35) X 10*3/uL POC Glucose (mg/dL) 190 H 254 H (70-110) mg/dL Assessment and Plan (1) Intertrochanteric fracture of right femur Narrative/Plan: He will continue with routine postop orthopedic protocol including pain management, wound care, PT, DVT prophylaxis and medical management. Expect that he will transfer to rehab in next 1-2 days Current Visit: Yes Status: Acute Priority: Medium Code(s): S72.141A - DISPLACED INTERTROCHANTERIC FRACTURE OF RIGHT FEMUR, INIT SNOMED Code(s): 960860127 Time with Patient: Less than 30
[2023-01-14] MEDS: LACTATED RINGERS 1,000 ML IV SCH ×2 (15:23)
--- NOTE | 2023-01-14 16:25 | P.PN ---
Subjective Progress Note Date: 01/14/23 History of Presenting Illness: Patient is a very pleasant 82-year-old male with a past medical history of hypertension, hyperlipidemia, chronic kidney disease stage III, and insulin- dependent diabetes mellitus. He presented to the emergency department status post mechanical fall on 01/12/23. Patient was at his PCPs office for his annual physical when he subsequently tripped on a curb falling onto his right side and immediately felt pain to his right hip with difficulty moving right leg. Patient underwent full evaluation in the emergency department. X-ray right hip revealed arthroplathy with concentric narrowing of the joint and hypertrophic change of the acetabulum and questionable deformity involving the femoral neck. CT hip was then completed revealing acute comminuted mildly displaced proximal right femoral intertrochanteric fracture. Labs completed and also reviewed. CBC unremarkable. BMP revealing mildly elevated renal function with BUN of 29, creatinine 1.37, and GFR of 47 with baseline creatinine of 1.5. Patient was admitted under orthopedic surgery team and we were consulted for preoperative clearance and medical management. Patient underwent right intramedullary hip screw fixation for right intertrochanteric hip fracture on 01/13/[address] Garcia. Physical exam: Patient seen and fully evaluated at bedside this morning. Patient was ambulating with walker back from bathroom. Patient is postoperative day one and appears to be doing fantastic. Patient back to normal mentation and alert to person, place, time, and situation. Patient denies having any pain. He does report mild discomfort in right hip upon sitting and initially upon standing but currently reports pain is controlled. Vital signs reviewed and stable. General: Nontoxic, no distress and appears stated age. Derm: Skin warm and dry, normal coloration for ethnicity. Head: Atraumatic, normocephalic and symmetric. Eyes: EOMs intact, no lid lag, and anicteric sclera Mouth: no lip lesions, mucus membranes moist Cardiovascular: regular rate and rhythm with normal S1S2, soft systolic murmur, positive posterior tibial pulses bilaterally, and cap refill < 2 seconds. Lungs: Respirations even, regular, and unlabored on room air. Lungs CTA bilaterally, no rhonchi, no rales, no wheezing, and no accessory muscle usage. Abdominal: soft, nontender to palpation, no guarding, no appreciable organomegaly Ext: Movement and sensation and intact. Postoperative dressing intact right lateral hip Neuro: Speech clear, face symmetrical and CN II-XII grossly intact with no noted focal neuro deficits. Psych: Alert and oriented to person and place Assessment and Plan of Care: Morning labs reviewed and stable. Postoperative CBC revealing stable hemoglobin of 12.5. Status post right intramedullary hip screw fixation for right intertrochanteric hip fracture -DVT prophylaxis, pain management, weightbearing, and PT/OT per primary admitting orthopedic surgery team. Insulin-dependent diabetes mellitus with hyperglycemia -Glucose averaging from 149-229 over the past 24 hours. Patient to continue Levemir 15 units daily along with glycemic protocol and NovoLog sliding scale to maintain tight glycemic control throughout hospitalization and recovery period. -Hemoglobin A1c is 9.1% Hypertension Hypertensive urgency, secondary to acute pain -Upon arrival to this facility patient was in hypertensive urgency with blood pressure 208/84, uncontrolled hypertension likely secondary to acute uncontrolled pain from right femoral fracture. -Currently blood pressures much better controlled with morning blood pressure 147/73 and heart rate 82. -Continue lisinopril 10 mg daily in substitute for Vasotec secondary to hospital availability. Hyperlipidemia -Recommend following a heart healthy diet. Patient to continue daily medication regimen with atorvastatin 40 mg daily. Chronic kidney disease stage III -Labs reviewed. BMP reviewed showing stable renal function with BUN 26.1, creatinine 1.5, and GFR 42.4 with baseline creatinine is around 1.5. -Renal function appears to be at baseline, patient received IV fluid hydration and is now tolerating oral intake well. 0.9% normal saline infusion discontinued. Thank you for allowing us to participate in the care of this pleasant patient. Do not hesitate to contact us with questions. Someone can be reached from the [facility] hospitalist group all hours of the day at [phone] or via [employer]. Caesar Zendejas NP rendered care for this patient independently, reviewed the findings and plan as documented in the note above. I did not physically speak w ith or examine the patient on this date. Objective - Vital Signs Vital signs: Vital Signs Temp 98.3 F 01/14/23 08:24 Pulse 82 01/14/23 08:24 Resp 17 01/14/23 08:24 BP 147/73 01/14/23 08:24 Pulse Ox 97 01/14/23 08:24 FiO2 Intake & Output 01/13/23 01/14/23 01/14/23 18:59 06:59 18:59 Intake Total 1031 600 Output Total 150 900 Balance 881 -300 Weight 81.647 kg Intake: IV 1031 Oral 600 Output: Urine 125 900 Estimated Blood Loss 25 Other: Voiding Method Urinal Urinal Urinal - Labs CBC & Chem 7: 01/14/23 06:06 01/13/23 06:00 Labs: Abnormal Lab Results - Last 24 Hours (Table) 01/13/23 01/13/23 01/13/23 Range/Units 06:00 06:00 11:47 RBC 4.24 L (4.30-5.90) m/uL Hgb (13.0-17.0) g/dL Hct (39.6-50.0) % Plt Count 121 L (150-450) k/uL MPV (9.5-12.2) fL Immature Gran # (0.00-0.04) X 10*3/uL Neutrophils # (1.80-7.70) X 10*3/uL Lymphocytes # (0.90-5.00) X 10*3/uL Eosinophils # (0.04-0.35) X 10*3/uL Est GFR (CKD-EPI)AfAm 49.2 L (60.0-200.0) Est GFR (CKD-EPI)NonAf 42.4 L (60.0-200.0) Glucose 142 H (70-110) mg/dL POC Glucose (mg/dL) 165 H (70-110) mg/dL Total Protein 5.9 L (6.2-8.2) g/dL 01/13/23 01/13/23 01/13/23 Range/Units 14:55 17:18 20:44 RBC (4.30-5.90) m/uL Hgb (13.0-17.0) g/dL Hct (39.6-50.0) % Plt Count (150-450) k/uL MPV (9.5-12.2) fL Immature Gran # (0.00-0.04) X 10*3/uL Neutrophils # (1.80-7.70) X 10*3/uL Lymphocytes # (0.90-5.00) X 10*3/uL Eosinophils # (0.04-0.35) X 10*3/uL Est GFR (CKD-EPI)AfAm (60.0-200.0) Est GFR (CKD-EPI)NonAf (60.0-200.0) Glucose (70-110) mg/dL POC Glucose (mg/dL) 156 H 213 H 229 H (70-110) mg/dL Total Protein (6.2-8.2) g/dL 01/14/23 01/14/23 Range/Units 06:06 06:28 RBC 4.36 L (4.30-5.90) m/uL Hgb 12.5 L (13.0-17.0) g/dL Hct 38.0 L (39.6-50.0) % Plt Count 120 L (150-450) k/uL MPV 12.9 H (9.5-12.2) fL Immature Gran # 0.05 H (0.00-0.04) X 10*3/uL Neutrophils # 7.71 H (1.80-7.70) X 10*3/uL Lymphocytes # 0.71 L (0.90-5.00) X 10*3/uL Eosinophils # 0.02 L (0.04-0.35) X 10*3/uL Est GFR (CKD-EPI)AfAm (60.0-200.0) Est GFR (CKD-EPI)NonAf (60.0-200.0) Glucose (70-110) mg/dL POC Glucose (mg/dL) 190 H (70-110) mg/dL Total Protein (6.2-8.2) g/dL
[2023-01-14 16:37] LABS: Glucose,Whole Blood 159 mg/dL (70-110)
[2023-01-14] MEDS: SENNOSIDES-DOCUSATE SODIUM 1 EACH TAB PO SCH (20:51)
[2023-01-14 21:25] LABS: Glucose,Whole Blood 289 mg/dL (70-110)
[2023-01-15] MEDS: INSULIN ASPART (NovoLOG) 100 UNIT/ML VIAL SQ SCH ×2 (06:38→12:37)
[2023-01-15 06:39] LABS: Glucose,Whole Blood 116 mg/dL (70-110)
[2023-01-15] MEDS: INSULIN DETEMIR (LEVEMIR) 100 UNIT/ML SYR SQ SCH (06:53)
[2023-01-15] MEDS: traMADol 50 MG TAB PO PRN (07:46)
[2023-01-15 08:06] VITALS: RESP 17
[2023-01-15 08:51] LABS: HCT 32.1 % (39.6-50.0); HGB 10.5 g/dL (13.0-17.0); MCH 28.5 pg (27.0-32.0); MCHC 32.7 g/dL (32.0-37.0); MCV 87.2 fL (80.0-97.0); Mean Platelet Volume 12.9 fL (9.5-12.2); NRBC Per 100 WBC 0 /100 WBCS (0.0-0.0); Platelet Count 105 X 10*3/uL (140-440); RBC 3.68 X 10*6/uL (4.40-5.60); RDW 14.1 % (11.5-14.5); WBC 6.55 X 10*3/uL (4.50-10.00)
[2023-01-15 09:02] LABS: African American GFR (CKD) 42.3 (60.0-200.0); Anion Gap 10.3 mmol/L (10.00-18.00); BUN/Creat Ratio 21.12 Ratio (12.00-20.00); Blood Urea Nitrogen 35.9 mg/dL (9.0-27.0); Calcium 8.5 mg/dL (8.7-10.3); Carbon Dioxide 24.7 mmol/L (20.0-27.5); Magnesium 1.6 mg/dL (1.5-2.4); Non-African American GFR(CKD) 36.5 (60.0-200.0)
--- NOTE | 2023-01-15 09:09 | P.PN ---
Subjective Progress Note Date: 01/15/23 History of Presenting Illness: Patient is a very pleasant 82-year-old male with a past medical history of hypertension, hyperlipidemia, chronic kidney disease stage III, and insulin- dependent diabetes mellitus. He presented to the emergency department status post mechanical fall on 01/12/23. Patient was at his PCPs office for his annual physical when he subsequently tripped on a curb falling onto his right side and immediately felt pain to his right hip with difficulty moving right leg. Patient underwent full evaluation in the emergency department. X-ray right hip revealed arthroplathy with concentric narrowing of the joint and hypertrophic change of the acetabulum and questionable deformity involving the femoral neck. CT hip was then completed revealing acute comminuted mildly displaced proximal right femoral intertrochanteric fracture. Labs completed and also reviewed. CBC unremarkable. BMP revealing mildly elevated renal function with BUN of 29, creatinine 1.37, and GFR of 47 with baseline creatinine of 1.5. Patient was admitted under orthopedic surgery team and we were consulted for preoperative clearance and medical management. Patient underwent right intramedullary hip screw fixation for right intertrochanteric hip fracture on 01/13/[address] Garcia. Physical exam: Patient seen and fully evaluated at bedside this morning. He has postoperative day 2 and appears to be doing well. Patient sitting in chair. Denies having any pain or complaints at this time. Vital signs reviewed and stable. General: Nontoxic, no distress and appears stated age. Derm: Skin warm and dry, normal coloration for ethnicity. Head: Atraumatic, normocephalic and symmetric. Eyes: EOMs intact, no lid lag, and anicteric sclera Mouth: no lip lesions, mucus membranes moist Cardiovascular: regular rate and rhythm with normal S1S2, soft systolic murmur, positive posterior tibial pulses bilaterally, and cap refill < 2 seconds. Lungs: Respirations even, regular, and unlabored on room air. Lungs CTA bilaterally, no rhonchi, no rales, no wheezing, and no accessory muscle usage. Abdominal: soft, nontender to palpation, no guarding, no appreciable organomegaly Ext: Movement and sensation and intact. Postoperative dressing intact right lateral hip Neuro: Speech clear, face symmetrical and CN II-XII grossly intact with no noted focal neuro deficits. Psych: Alert and oriented to person and place Assessment and Plan of Care: Morning labs reviewed and stable. Postoperative CBC revealing a postoperative blood loss anemia with stable hemoglobin of 10.5 and persistent thrombocytopenia with platelet count of 105. No need for intervention, CBC and platelet count stable. BMP revealing slight elevation of creatinine from 1.5-1.7 patient given gentle IV fluid hydration with no further interventions needed at this time as creatinine is consistent with patient's stage III CKD. Magnesium low at 1.6 and order placed for 2 g magnesium sulfate IVPB x 1 dose. Once magnesium infusion is completed, patient will be medically optimized for discharge once cleared by primary admitting orthopedic surgery team. Postoperative anemia, expected finding and stable. Chronic thrombocytopenia, stable. Hypomagnesemia, replaced. Status post right intramedullary hip screw fixation for right intertrochanteric hip fracture -DVT prophylaxis, pain management, weightbearing, and PT/OT per primary admitting orthopedic surgery team. Insulin-dependent diabetes mellitus with hyperglycemia -Glucose averaging from 116-289 over the past 24 hours. Patient to continue Levemir 15 units daily along with glycemic protocol and NovoLog sliding scale to maintain tight glycemic control throughout hospitalization and recovery period. -Hemoglobin A1c is 9.1% Hypertension Hypertensive urgency, secondary to acute pain -Upon arrival to this facility patient was in hypertensive urgency with blood pressure 208/84, uncontrolled hypertension likely secondary to acute uncontrolled pain from right femoral fracture. -Currently blood pressure is unremarkable at 114/73 with heart rate of 90. -Continue lisinopril 10 mg daily in substitute for Vasotec secondary to hospital availability. Hyperlipidemia -Recommend following a heart healthy diet. Patient to continue daily medication regimen with atorvastatin 40 mg daily. Chronic kidney disease stage III -Labs reviewed. BMP reviewed showing stable renal function consistent with stage IIIc CKD with BUN 35.9, creatinine 1.7, and GFR of 36.5 with baseline creatinine of around 1.5. -Renal function appears to be at baseline, patient received IV fluid hydration and is now tolerating oral intake well. Thank you for allowing us to participate in the care of this pleasant patient. Do not hesitate to contact us with questions. Someone can be reached from the [facility] hospitalist group all hours of the day at [phone] or via [employer]. Objective - Vital Signs Vital signs: Vital Signs Temp 98.5 F 01/15/23 08:00 Pulse 90 01/15/23 08:00 Resp 17 01/15/23 08:00 BP 114/73 01/15/23 08:00 Pulse Ox 97 01/15/23 08:00 FiO2 Intake & Output 01/14/23 01/15/23 01/15/23 18:59 06:59 18:59 Intake Total 1000 1360 Output Total 500 140 Balance 1000 860 -140 Intake: IV 1000 400 Sodium Chloride 0.9% 1, 1000 400 000 ml @ 100 mls/hr IV . Q10H HUGO Rx#:[id number] Oral 960 Output: Urine 500 140 Other: Voiding Method Urinal Urinal Urinal # Voids 2 2 - Labs CBC & Chem 7: 01/15/23 05:55 01/15/23 05:55 Labs: Abnormal Lab Results - Last 24 Hours (Table) 01/14/23 01/14/23 01/14/23 Range/Units 11:46 16:35 21:23 RBC (4.40-5.60) X 10*6/uL Hgb (13.0-17.0) g/dL Hct (39.6-50.0) % Plt Count (140-440) X 10*3/uL MPV (9.5-12.2) fL BUN (9.0-27.0) mg/dL Creatinine (0.6-1.5) mg/dL Est GFR (CKD-EPI)AfAm (60.0-200.0) Est GFR (CKD-EPI)NonAf (60.0-200.0) BUN/Creatinine Ratio (12.00-20.00) Ratio POC Glucose (mg/dL) 254 H 159 H 289 H (70-110) mg/dL Calcium (8.7-10.3) mg/dL 01/15/23 01/15/23 01/15/23 Range/Units 05:55 05:55 06:33 RBC 3.68 L (4.40-5.60) X 10*6/uL Hgb 10.5 L (13.0-17.0) g/dL Hct 32.1 L (39.6-50.0) % Plt Count 105 L (140-440) X 10*3/uL MPV 12.9 H (9.5-12.2) fL BUN 35.9 H (9.0-27.0) mg/dL Creatinine 1.7 H (0.6-1.5) mg/dL Est GFR (CKD-EPI)AfAm 42.3 L (60.0-200.0) Est GFR (CKD-EPI)NonAf 36.5 L (60.0-200.0) BUN/Creatinine Ratio 21.12 H (12.00-20.00) Ratio POC Glucose (mg/dL) 116 H (70-110) mg/dL Calcium 8.5 L (8.7-10.3) mg/dL
[2023-01-15] MEDS ORDERED: SODIUM CHLORIDE 0.9% 1,000 ML IV SCH (09:15)
[2023-01-15] MEDS: lisinopriL 10 MG TAB PO SCH (10:32)
[2023-01-15] MEDS: MAGNESIUM SULFATE-D5W PMX 1 GM in DEXTROSE/WATER 1 100ML.BAG IVPB SCH ×2 (10:32→12:37)
[2023-01-15] MEDS: ATORVASTATIN 40 MG TAB PO SCH (10:32)
[2023-01-15] MEDS: ASPIRIN 81 MG PO SCH (10:32)
[2023-01-15 11:26] LABS: Glucose,Whole Blood 197 mg/dL (70-110)
[2023-01-15] MEDS: MULTIVITAMINS, THERA 1 EACH TAB PO SCH (12:38)
--- NOTE | 2023-01-15 12:44 | P.DS ---
Providers Date of admission: 01/12/23 11:32 Expected date of discharge: 01/15/23 Attending physician: Jhonatan Garcia Consults: 01/12/23 11:30 Consult Physician Urgent Consulting Provider: Juliana Roblero Consult Reason/Comments: Medical management Do you want consulting provider notified?: Yes Primary care physician: Saad Bynum MD - Discharge Diagnosis(es) (1) Intertrochanteric fracture of right femur Patient was admitted to the OR on 01/13/22 to undergo a right Gamma nail for IT hip fracture. He desired to proceed with elective surgery after given informed consent. He underwent the above procedure which he tolerated well without complication. Postoperative hospital course has remained without complication. On day of discharge he is afebrile, vital signs stable, labs within acceptable ranges, tolerating by mouth meds and diet, voiding without difficulty, positive flatus, denies abdominal pain or calf pain, pain is controlled on oral pain medication and has no new complaints. Wound is benign, neurovascular status is intact, calf is soft and nontender, abdomen soft and nontender. Review of systems is negative for numbness, tingling, fever, chills, chest pain, shortness of breath, nausea, vomiting, dizziness, headaches, slurred speech or other. Current Visit: Yes Status: Acute Priority: Medium Procedures: Right gamma nail for IT fracture Patient Condition at Discharge: Stable Plan - Discharge Summary Discharge Rx Participant: No New Discharge Prescriptions: New Docusate [Colace] 100 mg PO BID #60 capsule Ondansetron [Zofran] 4 mg PO Q8HR PRN #21 tab PRN Reason: Nausea Aspirin [Adult Low Dose Aspirin EC] 81 mg PO BID #60 tab HYDROcodone/APAP 5-325MG [[place] 5-325] 1 tab PO Q4HR PRN #42 tab PRN Reason: Pain Continue sitaGLIPtin [Januvia] 50 mg PO HS Enalapril [Vasotec] 5 mg PO DAILY Rosuvastatin [Crestor] 20 mg PO DAILY Insulin Glargine,Hum.rec.anlog [Lantus Solostar Pen] 15 unit SQ DAILY Glimepiride 2 mg PO DAILY Sildenafil [Revatio] 20 mg PO DAILY PRN PRN Reason: E.D. Discharge Medication List Enalapril [Vasotec] 5 mg PO DAILY 08/16/16 [History] Glimepiride 2 mg PO DAILY 08/16/16 [History] Insulin Glargine,Hum.rec.anlog [Lantus Solostar Pen] 15 unit SQ DAILY 08/16/16 [History] Rosuvastatin [Crestor] 20 mg PO DAILY 08/16/16 [History] sitaGLIPtin [Januvia] 50 mg PO HS 08/16/16 [History] Sildenafil [Revatio] 20 mg PO DAILY PRN 01/12/23 [History] Aspirin [Adult Low Dose Aspirin EC] 81 mg PO BID #60 tab 01/15/23 [Rx] Docusate [Colace] 100 mg PO BID #60 capsule 01/15/23 [Rx] HYDROcodone/APAP 5-325MG [[place] 5-325] 1 tab PO Q4HR PRN #42 tab 01/15/23 [Rx] Ondansetron [Zofran] 4 mg PO Q8HR PRN #21 tab 01/15/23 [Rx] Follow up Appointment(s)/Referral(s): Saad Bynum MD [Primary Care Provider] - 1-2 days [facility], [NON-STAFF] - As Needed Jhonatan Garcia MD [STAFF PHYSICIAN] - 01/27/23 2:35 pm Activity/Diet/Wound Care/Special Instructions: Touch down Weight bear with walker May shower after 3 days if no bleeding Keep wound clean and dry Take meds as directed michelle out at post op day #12 F/U with Dr. Garcia in office Discharge Disposition: TRANSFER TO SNF/ECF
[2023-01-15 13:13] VITALS: BP 144/71; PULSE 84; TEMP 98.2
[2023-01-15] MEDS: LACTATED RINGERS 1,000 ML IV SCH (13:58)
== END 2023-01-15 16:46 | DRG 482 ==
LOC: EC 08:21 → 4SSUR 11:32
PROVIDERS: ADMIT Orthopaedic Surgery Sports Medicine; ATTEND Orthopaedic Surgery Sports Medicine
PROC: 0QS636Z Reposition Right Upper Femur with Intramedullary Internal Fixation Device, Percutaneous Approach (ICD-10-PCS; principal; 2023-01-13 10:00)
DX: S72.141A Displaced intertrochanteric fracture of right femur, initial encounter for closed fracture (principal); W10.1XXA Fall (on)(from) sidewalk curb, initial encounter; W18.43XA Slipping, tripping and stumbling without falling due to stepping from one level to another, initial encounter; N18.30 Chronic kidney disease, stage 3 unspecified; Z79.84 Long term (current) use of oral hypoglycemic drugs; Z79.899 Other long term (current) drug therapy; Z87.891 Personal history of nicotine dependence; E11.22 Type 2 diabetes mellitus with diabetic chronic kidney disease; E78.5 Hyperlipidemia, unspecified; I12.9 Hypertensive chronic kidney disease with stage 1 through stage 4 chronic kidney disease, or unspecified chronic kidney disease; I16.0 Hypertensive urgency; Z79.4 Long term (current) use of insulin; Z79.82 Long term (current) use of aspirin
CPT/HCPCS: 36415; 73502; 80048; 80053; 83036; 83735; 85025; 85027; 85610; 85730; 96374; 99285

== ENCOUNTER → 2024-04-20 | Outpatient (CLI) | payer MEDICARE ==
--- NOTE | 2024-04-20 12:01 | US ---
EXAMINATION TYPE: US arterial LE multi level DATE OF EXAM: 04/20/2024 10:19 AM CLINICAL INDICATION: Male, 83 years old with history of I73.9 PERIPHERAL VASCULAR DISEASE, UNSPECIFIE D History of: Smoker: No Hypertension: No Diabetic: Yes Hyperlipidemia: No TIA/CVA: No Previous Vascular Surgery: No Vascular Ulcers: No Claudication: Yes Gangrene: No Doppler Waveforms: Right: Monophasic Left: Monophasic Right Brachial Pressure: 143 Left Brachial Pressure: 139 Ankle-Brachial Indices: Right: 0.5 Left: 0.67 (Vessel hardening > 1.4; Normal 0.9 - 1.4, Moderate 0.7 - 0.9, Severe 0.5-0.7) p Toe Brachial Indices: Right: 0.3 Left: 0.35 IMPRESSION: 1. Ankle-brachial brachial indices indicate mild peripheral arterial disease the right lower extremit y and moderate peripheral arterial disease of the left lower extremity. 2. Total brachial indices indicate significant small vessel disease bilaterally.
== END | disposition home or self-care (01) ==
LOC: RADUSWWP 09:17
PROVIDERS: ATTEND Family Medicine
DX: E11.51 Type 2 diabetes mellitus with diabetic peripheral angiopathy without gangrene (principal); I73.9 Peripheral vascular disease, unspecified
CPT/HCPCS: 93923

== ENCOUNTER 2024-04-26 14:02 | Inpatient (IN) | payer MEDICARE ==
--- NOTE | 2024-04-26 14:43 | ED ---
Neuro HPI - General Chief Complaint: Neuro Symptoms/Deficit Stated Complaint: poss stroke Time Seen by Provider: 04/26/24 14:22 Source: patient Mode of arrival: ambulatory Limitations: no limitations - History of Present Illness Is the patient presenting with stroke symptoms?: Yes Last Known Well Date: 04/26/24 Last Known Well Time: 07:00 Initial Comments: 83-year-old male with past medical history of diabetes mellitus, hypertension, hyperlipidemia who presents emergency department with signs of possible stroke. Granddaughter is at bedside and help provide the history. States that the patient took her to work just prior to 1 PM. She noticed that the patient had slurred speech and broken speech. Patient states he went to bed last night sometime between 9 PM and 12 PM. He was not having any issues. He then awoke this morning at 730 however did not talk to anybody until he took his granddaughter to work. This is when they noted his symptoms. He denies any numbness, tingling or weakness in his extremities. No history of stroke. Patient does not take any blood thinners. No other alleviating, precipitating or modifying factors - Related Data Home Medications: Home Medications Medication Instructions Recorded Confirmed Glimepiride 2 mg PO W/BRKFST 08/16/16 04/26/24 sitaGLIPtin [Januvia] 50 mg PO DAILY 08/16/16 04/26/24 Sildenafil [Revatio] 20 mg PO DAILY PRN 01/12/23 04/26/24 Atorvastatin [Lipitor] 40 mg PO DAILY 04/26/24 04/26/24 Previous Rx's Medication Instructions Recorded Aspirin 81 mg PO DAILY tab 04/29/24 Clopidogrel [Plavix] 75 mg PO DAILY #21 tab 04/29/24 lisinopriL [Zestril] 20 mg PO DAILY #30 tab 04/29/24 risperiDONE [RisperDAL] 0.5 mg PO HS #30 tab 04/29/24 Allergies/Adverse Reactions: Allergies Allergy/AdvReac Type Severity Reaction Status Date / Time No Known Allergies Allergy Verified 04/26/24 15:29 Review of Systems ROS Statement: Those systems with pertinent positive or pertinent negative responses have been documented in the HPI. ROS Other: All systems not noted in ROS Statement are negative. General Exam Limitations: no limitations Stroke MDM - Lab Data Result diagrams: 04/26/24 14:40 04/26/24 14:40 Lab Results 04/26/24 04/26/24 04/26/24 Range/Units 14:40 14:40 14:40 WBC 4.1 (3.8-10.6) k/uL RBC 4.40 (4.30-5.90) m/uL Hgb 12.9 L (13.0-17.5) gm/dL Hct 39.6 (39.0-53.0) % MCV 90.0 (80.0-100.0) fL MCH 29.3 (25.0-35.0) pg MCHC 32.6 (31.0-37.0) g/dL RDW 12.7 (11.5-15.5) % Plt Count 112 L (150-450) k/uL MPV 10.7 Neutrophils % 58 % Lymphocytes % 28 % Monocytes % 6 % Eosinophils % 5 % Basophils % 1 % Neutrophils # 2.4 (1.3-7.7) k/uL Lymphocytes # 1.1 (1.0-4.8) k/uL Monocytes # 0.3 (0-1.0) k/uL Eosinophils # 0.2 (0-0.7) k/uL Basophils # 0.0 (0-0.2) k/uL PT 11.0 (10.0-12.5) sec INR 1.0 (<1.2) APTT 23.9 (22.0-30.0) sec Sodium 139 (137-145) mmol/L Potassium 4.8 (3.5-5.1) mmol/L Chloride 107 (98-107) mmol/L Carbon Dioxide 29 (22-30) mmol/L Anion Gap 3 mmol/L BUN 45 H (9-20) mg/dL Creatinine 1.62 H (0.66-1.25) mg/dL Est GFR (CKD-EPI)AfAm 44 (>60 ml/min/1.73 sqM) Est GFR (CKD-EPI)NonAf 38 (>60 ml/min/1.73 sqM) Glucose 140 H (74-99) mg/dL Calcium 10.0 (8.4-10.2) mg/dL Total Bilirubin 0.8 (0.2-1.3) mg/dL AST 27 (17-59) U/L ALT 14 (4-49) U/L Alkaline Phosphatase 58 (38-126) U/L Creatine Kinase 37 L (55-170) U/L Troponin I (0.000-0.034) ng/mL Total Protein 6.7 (6.3-8.2) g/dL Albumin 4.2 (3.5-5.0) g/dL Triglycerides (0.00-149.00) mg/dL Cholesterol (0.00-200.00) mg/dL LDL Cholesterol, Calc (0.0-131.0) mg/dL VLDL Cholesterol, Calc (5.00-40.00) mg/dL HDL Cholesterol (40.00-60.00) mg/dL Cholesterol/HDL Ratio Ratio 04/26/24 04/26/24 Range/Units 14:40 14:40 WBC (3.8-10.6) k/uL RBC (4.30-5.90) m/uL Hgb (13.0-17.5) gm/dL Hct (39.0-53.0) % MCV (80.0-100.0) fL MCH (25.0-35.0) pg MCHC (31.0-37.0) g/dL RDW (11.5-15.5) % Plt Count (150-450) k/uL MPV Neutrophils % % Lymphocytes % % Monocytes % % Eosinophils % % Basophils % % Neutrophils # (1.3-7.7) k/uL Lymphocytes # (1.0-4.8) k/uL Monocytes # (0-1.0) k/uL Eosinophils # (0-0.7) k/uL Basophils # (0-0.2) k/uL PT (10.0-12.5) sec INR (<1.2) APTT (22.0-30.0) sec Sodium (137-145) mmol/L Potassium (3.5-5.1) mmol/L Chloride (98-107) mmol/L Carbon Dioxide (22-30) mmol/L Anion Gap mmol/L BUN (9-20) mg/dL Creatinine (0.66-1.25) mg/dL Est GFR (CKD-EPI)AfAm (>60 ml/min/1.73 sqM) Est GFR (CKD-EPI)NonAf (>60 ml/min/1.73 sqM) Glucose (74-99) mg/dL Calcium (8.4-10.2) mg/dL Total Bilirubin (0.2-1.3) mg/dL AST (17-59) U/L ALT (4-49) U/L Alkaline Phosphatase (38-126) U/L Creatine Kinase (55-170) U/L Troponin I <0.012 (0.000-0.034) ng/mL Total Protein (6.3-8.2) g/dL Albumin (3.5-5.0) g/dL Triglycerides 146.00 (0.00-149.00) mg/dL Cholesterol 137.00 (0.00-200.00) mg/dL LDL Cholesterol, Calc 76.5 (0.0-131.0) mg/dL VLDL Cholesterol, Calc 29.20 (5.00-40.00) mg/dL HDL Cholesterol 31.30 L (40.00-60.00) mg/dL Cholesterol/HDL Ratio 4.38 Ratio - Medical Decision Making Was pt. sent in by a medical professional or institution (, PA, VAN DRIVER, urgent care, hospital, or senior care...) When possible be specific @ -No Did you speak to anyone other than the patient for history (EMS, parent, family, police, friend...)? What history was obtained from this source @ -I spoke with the patient's granddaughter for history Did you review nursing and triage notes (agree or disagree)? Why? @ -I reviewed and agree with nursing and triage notes Were old charts reviewed (outside hosp., previous admission, EMS record, old EKG, old radiological studies, urgent care reports/EKG's, senior care records)? Report findings @ -No old charts were reviewed Differential Diagnosis (chest pain, altered mental status, abdominal pain women, abdominal pain men, vaginal bleeding, weakness, fever, dyspnea, syncope, headache, dizziness, GI bleed, back pain, seizure, CVA, palpatations, mental health, musculoskeletal)? @ -Differential CVA Ischemic stroke, hemorrhagic stroke, brain tumor, atypical migraine, Wernicke's encephalopathy, seizure, multiple sclerosis, meningitis, encephalitis, hypoglycemia, Guillain-Nj, electrolytes disturbance, myasthenia gravis.... This is not meant to be an all-inclusive list EKG interpreted by me (3pts min.). @ -Yes and demonstrates sinus bradycardia with a rate of 55. NV interval 143. QRS 139. QTc of 425. No acute ST segment elevations or depressions X-rays interpreted by me (1pt min.). @ -Pending at this time CT interpreted by me (1pt min.). @ -Pending at this time U/S interpreted by me (1pt. min.). @ -None done What testing was considered but not performed or refused? (CT, X-rays, U/S, labs)? Why? @ -None What meds were considered but not given or refused? Why? @ -None Did you discuss the management of the patient with other professionals (professionals i.e. DrIvy, PA, VAN DRIVER, lab, RT, psych nurse, licensed social worker, laborer tree tapping, teacher, flight deck officer, case filler)? Give summary @ -Spoke with Dr. Shaffer who will take over care of the patient Was smoking cessation discussed for >3mins.? @ -No Was critical care preformed (if so, how long)? @ -Yes, 35 minutes for code stroke activation Were there social determinants of health that impacted care today? How? (Homelessness, low income, unemployed, alcoholism, drug addiction, transportation, low edu. Level, literacy, decrease access to med. care, long term, rehab)? @ -No Was there de-escalation of care discussed even if they declined (Discuss DNR or withdrawal of care, Hospice)? DNR status @ -No What co-morbidities impacted this encounter? (DM, HTN, Smoking, COPD, CAD, Cancer, CVA, ARF, Chemo, Hep., AIDS, mental health diagnosis, sleep apnea, morbid obesity)? @ -None Was patient admitted / discharged? Hospital course, mention meds given and route, prescriptions, significant lab abnormalities, going to OR and other pertinent info. @ -Upon arrival patient seen and evaluated in room 16. Thorough history and physical exam was performed. Symptoms are concerning [id number]. Code stroke was activated with last known well last night. Patient sent for CT. He will be signed out to Dr. Shaffer for further disposition. Undiagnosed new problem with uncertain prognosis? @ -yes Drug Therapy requiring intensive monitoring for toxicity (Heparin, Nitro, Insulin, Cardizem)? @ -No Were any procedures done? @ -No Diagnosis/symptom? @ -Acute dysarthria Acute, or Chronic, or Acute on Chronic? @ -Acute Uncomplicated (without systemic symptoms) or Complicated (systemic symptoms)? @ -Complicated Side effects of treatment? @ -No Exacerbation, Progression, or Severe Exacerbation? @ -No Poses a threat to life or bodily function? How? (Chest pain, [place], [place], pneumonia, PE, COPD, DKA, ARF, appy, cholecystitis, CVA, Diverticulitis, Homicidal, Suicidal, threat to staff... and all critical care pts) @ -Yes this patient presents with strokelike symptoms Past Medical History Past Medical History: Diabetes Mellitus, Hyperlipidemia, Hypertension History of Any Multi-Drug Resistant Organisms: None Reported Past Surgical History: No Surgical Hx Reported Past Anesthesia/Blood Transfusion Reactions: No Reported Reaction Past Psychological History: No Psychological Hx Reported Smoking Status: Former smoker, Never smoker Past Alcohol Use History: None Reported Past Drug Use History: None Reported Course Vital Signs 04/26/24 04/26/24 04/26/24 14:10 14:55 16:00 Temperature 97.8 F 97.7 F Pulse Rate 60 73 59 L Respiratory 18 18 16 Rate Blood Pressure 132/66 153/66 144/66 O2 Sat by Pulse 59 L 98 97 Oximetry 04/26/24 04/26/24 04/26/24 16:44 17:33 18:27 Temperature 97.7 F Pulse Rate 56 L 51 L 60 Respiratory 17 14 17 Rate Blood Pressure 106/68 123/61 143/64 O2 Sat by Pulse 98 97 98 Oximetry 04/26/24 19:44 Temperature 98.0 F Pulse Rate 81 Respiratory 14 Rate Blood Pressure 143/68 O2 Sat by Pulse 97 Oximetry Disposition Clinical Impression: Dysarthria Disposition: ADMITTED IP TO THIS [facility] Condition: Serious Is patient prescribed a controlled substance at d/c from ED?: No
[2024-04-26 14:59] LABS: Basophils % (A) 1 %; Eosinophils # (A) 0.2 k/uL (0-0.7); Eosinophils % (A) 5 %; HCT 39.6 % (39.0-53.0); HGB 12.9 gm/dL (13.0-17.5); Lymphocytes # (A) 1.1 k/uL (1.0-4.8); Lymphocytes % (A) 28 %; MCH 29.3 pg (25.0-35.0); MCHC 32.6 g/dL (31.0-37.0); Mean Platelet Volume 10.7; Monocytes # (A) 0.3 k/uL (0-1.0); Monocytes % (A) 6 %; Neutrophils # (A) 2.4 k/uL (1.3-7.7); Neutrophils % (A) 58 %; Platelet Count 112 k/uL (150-450); RDW 12.7 % (11.5-15.5); WBC 4.1 k/uL (3.8-10.6)
--- NOTE | 2024-04-26 15:10 | XR ---
EXAMINATION TYPE: XR chest 2V DATE OF EXAM: 04/26/2024 COMPARISON: 03/07/2012 TECHNIQUE: PA and lateral views submitted. HISTORY: Altered mental status FINDINGS: The lungs are clear and there is no pneumothorax, pleural effusion, or focal pneumonia. Heart size normal and no overt failure. Osseous structures demonstrate hypertrophic and degenerative changes of the spine. Diffuse osteopenia. Atherosclerotic change aorta. IMPRESSION: 1. No acute process.
--- NOTE | 2024-04-26 15:13 | CT ---
EXAMINATION TYPE: CT angio head neck CT DLP: 410 mGycm, Automated exposure control for dose reduction was used. DATE OF EXAM: 04/26/2024 3:04 PM COMPARISON: 10/16/2016.. CLINICAL INDICATION:Male, 83 years old with history of Neuro deficit, acute, stroke suspected; PHH, S peech difficulty-slurring and numbness of right cheek and lips. TECHNIQUE: Axially acquired helical CT angiogram of the head and neck was obtained with contrast. Axi al images are supplemented with 3D reconstructions and MIP images which were post-processed at an in dependent workstation. NASCET criteria used. Contrast used:65 cc mL of Isovue 370 with IV Contrast, Oral contrast used: None. FINDINGS: CTA HEAD: No evidence of acute intracranial hemorrhage, mass effect, or midline shift. The ventricles, sulci, a nd cisterns are unremarkable. The visualized portions of the internal carotid arteries, middle cerebral arteries, anterior cerebral arteries, and posterior cerebral arteries are patent. The basilar and vertebral arteries are patent. CTA NECK: Right Carotid System: The common carotid artery and external carotid artery are patent. The carotid bifurcation demonstrate s no evidence of hemodynamically significant stenosis. The remaining portions of the internal carotid artery demonstrate normal size without significant narrowing. Left Carotid System: The common carotid artery and external carotid artery are patent. The carotid bifurcation demonstrate s no evidence of hemodynamically significant stenosis. The remaining portions of the internal carotid artery demonstrate normal size without significant narrowing. Vertebral arteries are patent without evidence hemodynamically significant stenosis. There is a three-vessel aortic arch. The origins of the great vessels are patent. No evidence of hemo dynamically significant stenosis. IMPRESSION: 1. No evidence of dissection of the cervical internal carotid arteries or vertebral arteries or any e vidence of significant stenosis at the carotid bifurcations. 2. No evidence of intracranial high-grade stenosis or intracranial aneurysm.
--- NOTE | 2024-04-26 15:18 | CT ---
EXAMINATION TYPE: CODE STROKE: CT brain wo contr CT DLP: 1055.3 mGycm, Automated exposure control for dose reduction was used. DATE OF EXAM: 04/26/2024 2:51 PM COMPARISON: 1020 12/28/2017.. CLINICAL INDICATION:Male, 83 years old with history of Neuro deficit, acute, stroke suspected, Speech difficulty-slurring and numbness of right cheek and lips. TECHNIQUE: Brain: Axial CT images of the brain were obtained with coronal and sagittal reformats created and rev iewed. Contrast used: None. Oral contrast used: None. FINDINGS: Brain: Extra-axial spaces: No abnormal extra-axial fluid collections. Ventricular system: Dilatation in proportion to cerebral atrophy. Cerebral parenchyma: Hypodense area in the left thalamus possibly present on 2016 exam. Cerebral atro phy. No acute intraparenchymal hemorrhage or mass effect. The crowley-white junction is well differenti ated. Scattered hypoattenuating areas are seen within the white matter. Cerebellum: Unremarkable. Mass effect: No evidence of midline shift. Intracranial vasculature: unremarkable Soft tissues: Right posterior scalp lipoma measuring 13 mm. Calvarium/osseous structures: No depressed skull fracture. Paranasal sinuses and mastoid air cells: Mild scattered paranasal sinus disease. Visualized orbits: Orbital contents are intact. IMPRESSION: 1. No acute intracranial process. 2. Remote lacunar injuries along with nonspecific white matter changes likely secondary to chronic mi croangiopathy.
[2024-04-26 15:19] LABS: ALT 14 U/L (4-49); African American GFR (CKD) 44 (>60 ml/min/1.73 sqM); Albumin 4.2 g/dL (3.5-5.0); Anion Gap 3 mmol/L; Blood Urea Nitrogen 45 mg/dL (9-20); Carbon Dioxide 29 mmol/L (22-30); Chloride 107 mmol/L (98-107); Creatine Kinase 37 U/L (55-170); Glucose 140 mg/dL (74-99); Non-African American GFR(CKD) 38 (>60 ml/min/1.73 sqM); Sodium 139 mmol/L (137-145); Total Bilirubin 0.8 mg/dL (0.2-1.3); Total Protein 6.7 g/dL (6.3-8.2)
[2024-04-26 15:30] LABS: Partial Thromboplastin Time 23.9 sec (22.0-30.0)
[2024-04-26 15:39] LABS: AST 27 U/L (17-59); Alkaline Phosphatase 58 U/L (38-126); Potassium 4.8 mmol/L (3.5-5.1)
[2024-04-26] MEDS: SODIUM CHLORIDE 0.9% 1,000 ML IV SCH (17:42)
[2024-04-27] MEDS: DOCUSATE 100 MG CAP PO SCH (02:31)
[2024-04-27 10:06] LABS: Chol/HDL Ratio 4.38 Ratio; LDL Cholesterol,Calculated 76.5 mg/dL (0.0-131.0)
[2024-04-27 11:25] LABS: Glucose,Whole Blood 184 mg/dL (70-110)
[2024-04-27] MEDS ORDERED: DEXTROSE 50% SYRINGE 50 ML IVP PRN ×2 (11:49)
[2024-04-27] MEDS: ATORVASTATIN 40 MG TAB PO SCH (12:04)
[2024-04-27] MEDS: lisinopriL 10 MG TAB PO SCH (12:04)
[2024-04-27] MEDS: LINAGLIPTIN 5 MG TABLET PO SCH (12:04)
[2024-04-27] MEDS: INSULIN ASPART (NovoLOG) 100 UNIT/ML VIAL SQ SCH (12:04)
--- NOTE | 2024-04-27 14:18 | P.CNNES ---
History of Present Illness Consult date: 04/27/24 Requesting physician: Andrew Shaffer Reason for Consult: dysarthria, stroke vs tia History of Present Illness: There is an 83-year-old gentleman who presents emergency department because of the speech and unable to get his words out 2 days ago. Patient states he resides by himself had slurring the speech and difficulty getting his words out. He denies any history of stroke in the past. He states he is on aspirin 81 mg daily. He smokes pipe cigarettes occasionally. According to the ED note, daughter provided some of the history and granddaughter states the patient took her to work just prior to 1 PM and she noticed that the patient had slurred speech and broken speech yesterday and seems that he went to bed the night before he presented to the hospital between 9 PM and 12 PM and did not have any issue and then he woke up about 730 but did not talk to anybody until he took the granddaughter to work. He did not have any weakness tingling. Concur the patient did not have any history of stroke. Some of the workup during this hospital visit consisted of: Lipid panel is triglyceride 146, cholesterol 137, LDL 76 and HDL 31 I reviewed the rest of the lab workup CT of the head is reported as no acute intracranial process. Remote lacunar injury along with nonspecific white matter changes likely secondary due to chronic microangiopathy. I personally reviewed the CT and I agree there is no acute or subacute ischemic changes. CT angiography of the head and neck is reported as no evidence of dissection of cervical internal carotid artery or vertebral artery or any evidence of significant stenosis at the carotid bifurcation. No evidence of intracranial high-grade stenosis or intracranial aneurysm. No IV thrombolytics since the patient is outside the window. And the risk outweigh the benefit. Review of Systems The positive and negative as per HPI. Past Medical History Past Medical History: Diabetes Mellitus, Hyperlipidemia, Hypertension History of Any Multi-Drug Resistant Organisms: None Reported Past Surgical History: No Surgical Hx Reported Past Anesthesia/Blood Transfusion Reactions: No Reported Reaction Past Psychological History: No Psychological Hx Reported Smoking Status: Former smoker Past Alcohol Use History: None Reported Past Drug Use History: None Reported Medications and Allergies Home Medications Medication Instructions Recorded Confirmed Type Glimepiride 2 mg PO W/BRKFST 08/16/16 04/26/24 History sitaGLIPtin [Januvia] 50 mg PO DAILY 08/16/16 04/26/24 History Sildenafil [Revatio] 20 mg PO DAILY PRN 01/12/23 04/26/24 History Atorvastatin [Lipitor] 40 mg PO DAILY 04/26/24 04/26/24 History lisinopriL [Zestril] 10 mg PO DAILY 04/26/24 04/26/24 History Allergies Allergy/AdvReac Type Severity Reaction Status Date / Time No Known Allergies Allergy Verified 04/26/24 15:29 Physical Examination - Vital Signs Vital Signs: Vital Signs Temp Pulse Pulse Resp BP BP Pulse Ox 04/27/24 11:44 72 16 115/55 100 04/27/24 09:21 61 04/27/24 08:00 98.1 F 61 16 128/65 98 04/27/24 04:00 71 16 105/63 93 L 04/27/24 00:00 98 F 76 16 112/69 95 04/26/24 19:44 98.0 F 81 14 143/68 97 04/26/24 18:27 60 17 143/64 98 04/26/24 17:33 51 L 14 123/61 97 04/26/24 16:44 97.7 F 56 L 17 106/68 98 04/26/24 16:00 97.7 F 59 L 16 144/66 97 04/26/24 14:55 73 18 153/66 98 04/26/24 14:10 97.8 F 60 18 132/66 59 L Intake and Output 04/26/24 04/27/24 04/27/24 22:59 06:59 14:59 Output Total 300 Balance -300 Output: Urine 300 Other: Voiding Method Toilet Toilet Urinal Urinal # Voids 0 1 # Bowel Movements 0 1 Weight 68.6 kg GENERAL: The patient is sitting in a recliner chair and is not in acute distress. NEUROLOGICAL: Higher mental function: The patient is awake, alert, oriented to self, place. He correctly stated the month but did not know year. Patient is following simple commands. No aphasia and no neglect. Cranial nerves: The pupils are round, equal and reactive to light and accommodation. Visual mccauley are full to confrontation throughout. Extraocular movement is intact no nystagmus is noted. Facial sensation is normal to touch throughout. The facial strength is normal throughout. Hearing is mildly to moderate decreased to hand rub. Tongue is midline and moved [id number] without any difficulty. Has moderate dysarthria is noted. Shoulder shrug is normal bilaterally. Motor: The strength is 5 over 5 throughout. Normal tone and bulk. Cerebellum: Normal finger to nose bilaterally. Sensation: Sensation is normal to touch throughout. Reflexes (right/left): 2+ throughout. Plantars are downgoing bilaterally. Results - Laboratory Findings CBC and BMP: 04/26/24 14:40 04/26/24 14:40 Abnormal Lab Findings: Abnormal Labs 04/26/24 04/26/24 04/26/24 14:40 14:40 14:40 Hgb 12.9 L Plt Count 112 L BUN 45 H Creatinine 1.62 H Glucose 140 H POC Glucose (mg/dL) Creatine Kinase 37 L HDL Cholesterol 31.30 L 04/27/24 11:21 Hgb Plt Count BUN Creatinine Glucose POC Glucose (mg/dL) 184 H Creatine Kinase HDL Cholesterol Assessment and Plan Assessment: This is an 83-year-old gentleman who presents emergency department because of dysarthria and expressive aphasia Likely acute ischemic stroke (with symptoms of dysarthria and expressive aphasi a). He continues to have dysarthria. No IV thrombolytic since outside window Diabetes mellitus Hypertension Plan: Patient states he was on aspirin 81 mg daily at home therefore I will resume the home medication and I started the patient on Plavix 75 mg daily. He is on Lipitor 40 mg daily. I ordered MRI of the brain without stroke protocol Ordered 2D echo, HbA1c, TSH. Continue neurochecks Cardiac monitoring PT OT and BRICK OFFBEARER are consulted With the rest of the medical management the primary team DVT prophylaxis I started the patient on subcu heparin 5000 units every 12 hours Thank you for the consultation Time with Patient: Greater than 30
[2024-04-27] MEDS: CLOPIDOGREL 75 MG TAB PO SCH (14:58)
[2024-04-27] MEDS: ASPIRIN 81 MG PO SCH (14:58)
[2024-04-27] MEDS ORDERED: LORazepam 2 MG/ML INJ IV PRN (15:24)
[2024-04-27 17:02] LABS: Glucose,Whole Blood 180 mg/dL (70-110)
[2024-04-27 20:04] LABS: Glucose,Whole Blood 142 mg/dL (70-110)
[2024-04-27] MEDS ORDERED: ACETAMINOPHEN TAB 325 MG TAB PO PRN (20:04)
[2024-04-27] MEDS ORDERED: CALCIUM CARBONATE 500 MG CHEWABLE PO PRN (20:04)
[2024-04-27] MEDS ORDERED: ONDANSETRON 4 MG/2 ML VIAL IVP PRN (20:04)
[2024-04-27] MEDS ORDERED: LACTULOSE 20 GM/30 ML CUP PO PRN (20:04)
[2024-04-27] MEDS ORDERED: MELATONIN 3 MG TABLET PO PRN (20:04)
[2024-04-27] MEDS ORDERED: NALOXONE 0.4 MG/ML 1 ML VIAL IV PRN (20:04)
--- NOTE | 2024-04-27 20:06 | P.HPIM ---
History of Present Illness H&P Date: 04/27/24 Chief Complaint: Change in speech This is a pleasant 83-year-old patient, follows with Dr. Ricardo. Chronic stable medical conditions include diabetes, hypertension, hyperlipidemia. Patient is accompanied by his neighbor who helps him in the room. Patient was noted to have a speech of that was discovered yesterday. No change in vision headache or focal weakness or change in walking. Normally has a bowel movement every other day. Sleeping well. It was unclear if the time when this occurred. Granddaughter presented to the ER with the patient. He had gone to bed the previous night severity 9 PM and 12 PM was not having any symptoms. And when he woke up around 7:30 in the morning he was not able to use talk to anybody until he took his granddaughter to work. Test and the symptoms were noted around 1 PM. There is some improvement of speech this morning Review of systems: GEN.: None EYES: None HEENT: None NECK: None RESPIRATORY: None CARDIOVASCULAR: None GASTROINTESTINAL: None GENITOURINARY: None MUSCULOSKELETAL: None LYMPHATICS: None HEMATOLOGICAL: None PSYCHIATRY: None NEUROLOGICAL: [As above Social history: Does use a cane. Lives alone. Former smoker. Physical examination: VITAL SIGNS: 98.6, 8060, 16, 137/60, 100% room air GENERAL: BMI 21.1, laying bed awake comfortable. EYES: Pupils equal. Conjunctiva zi l. HEENT: External appearance of nose and ears normal, oral cavity grossly normal. NECK: JVD not raised; masses not palpable. HEART: First and second heart sounds are normal; no edema. LUNGS: Respiratory rate normal; clear to auscultation. ABDOMEN: Soft, nontender, liver spleen not palpable, no masses palpable. PSYCH: Able to hold a conversation rather simply l. MUSCULOSKELETAL:No Clubbing/cyanosis;muscles-grossly intact. OA NEUROLOGICAL: Cranial nerves grossly intact; no facial asymmetry, power and sensation grossly intact. Speech is slightly slow. as also noticed by the patient's neighbor at the bedside LYMPHATICS: No lymph nodes palpable in the axilla and neck INVESTIGATIONS, reviewed in the clinical context: April 26: White count 4.1 hemoglobin 12.9 platelets 112 potassium 4.8 BUN 45 creatinine 1.62 Troponin I less than 0.012 x 3 LDL 76. TSH 0.608 EKG tracing personally reviewed by me-sinus bradycardia. Right bundle edgar block Chest x-ray film personally reviewed by me-borderline cardiomegaly CT scan angio brain and neck: Unremarkable CT brain without contrast: No acute process. Remote lacunar injuries along the end with nonspecific white matter changes. Assessment and plan: -Acute stroke likely lacunar. Primarily affecting the speech. Initial CT scan negative. 2D echo, MRI brain. Aspirin. Lipitor. Plavix. Speech therapy Neurochecks. Neurology following. -Diabetes mellitus type 2 on oral hypoglycemic Januvia. Hold glimepiride. Follow Accu-Cheks. -Essential hypertension Zestril -Hyperlipidemia Lipitor -DNR -Medical Ernie JOHNSON Care was discussed with the patient and the neighbor at the bedside. Questions answered. Past Medical History Past Medical History: Diabetes Mellitus, Hyperlipidemia, Hypertension History of Any Multi-Drug Resistant Organisms: None Reported Past Surgical History: No Surgical Hx Reported Past Anesthesia/Blood Transfusion Reactions: No Reported Reaction Past Psychological History: No Psychological Hx Reported Smoking Status: Former smoker Past Alcohol Use History: None Reported Past Drug Use History: None Reported Medications and Allergies Home Medications Medication Instructions Recorded Confirmed Type Glimepiride 2 mg PO W/BRKFST 08/16/16 04/26/24 History sitaGLIPtin [Januvia] 50 mg PO DAILY 08/16/16 04/26/24 History Sildenafil [Revatio] 20 mg PO DAILY PRN 01/12/23 04/26/24 History Atorvastatin [Lipitor] 40 mg PO DAILY 04/26/24 04/26/24 History lisinopriL [Zestril] 10 mg PO DAILY 04/26/24 04/26/24 History Allergies Allergy/AdvReac Type Severity Reaction Status Date / Time No Known Allergies Allergy Verified 04/26/24 15:29 Physical Exam Vitals: Vital Signs Temp Pulse Pulse Resp BP BP Pulse Ox 04/27/24 09:21 61 04/27/24 08:00 98.1 F 61 16 128/65 98 04/27/24 04:00 71 16 105/63 93 L 04/27/24 00:00 98 F 76 16 112/69 95 04/26/24 19:44 98.0 F 81 14 143/68 97 04/26/24 18:27 60 17 143/64 98 04/26/24 17:33 51 L 14 123/61 97 04/26/24 16:44 97.7 F 56 L 17 106/68 98 04/26/24 16:00 97.7 F 59 L 16 144/66 97 04/26/24 14:55 73 18 153/66 98 04/26/24 14:10 97.8 F 60 18 132/66 59 L Intake and Output 04/26/24 04/27/24 04/27/24 22:59 06:59 14:59 Output Total 300 Balance -300 Output: Urine 300 Other: Voiding Method Toilet Toilet Urinal Urinal # Voids 0 # Bowel Movements 0 Weight 68.6 kg Results CBC & Chem 7: 04/26/24 14:40 04/26/24 14:40 Labs: Abnormal Lab Results - Last 24 Hours (Table) 04/26/24 04/26/24 04/26/24 Range/Units 14:40 14:40 14:40 Hgb 12.9 L (13.0-17.5) gm/dL Plt Count 112 L (150-450) k/uL BUN 45 H (9-20) mg/dL Creatinine 1.62 H (0.66-1.25) mg/dL Glucose 140 H (74-99) mg/dL POC Glucose (mg/dL) (70-110) mg/dL Creatine Kinase 37 L (55-170) U/L HDL Cholesterol 31.30 L (40.00-60.00) mg/dL 04/27/24 Range/Units 11:21 Hgb (13.0-17.5) gm/dL Plt Count (150-450) k/uL BUN (9-20) mg/dL Creatinine (0.66-1.25) mg/dL Glucose (74-99) mg/dL POC Glucose (mg/dL) 184 H (70-110) mg/dL Creatine Kinase (55-170) U/L HDL Cholesterol (40.00-60.00) mg/dL
[2024-04-27] MEDS ORDERED: HEPARIN SODIUM,PORCINE 5,000 UNIT/ML 1 ML VIAL SQ SCH (21:00)
[2024-04-27] MEDS: ENOXAPARIN 40 MG/0.4 ML SYRINGE SQ SCH (21:20)
[2024-04-28 06:09] LABS: Glucose,Whole Blood 137 mg/dL (70-110)
[2024-04-28] MEDS: HALOPERIDOL LACTATE 5 MG/ML 1 ML VIAL IVP ONE (11:16)
[2024-04-28 11:40] LABS: Glucose,Whole Blood 168 mg/dL (70-110)
--- NOTE | 2024-04-28 12:19 | P.PN ---
Progress Note - Text Progress Note Date: 04/28/24 Chief Complaint: Change in speech This is a pleasant 83-year-old patient, follows with Dr. Ricardo. Chronic stable medical conditions include diabetes, hypertension, hyperlipidemia. Patient is accompanied by his neighbor who helps him in the room. Patient was noted to have a speech of that was discovered yesterday. No change in vision headache or focal weakness or change in walking. Normally has a bowel movement every other day. Sleeping well. It was unclear if the time when this occurred. Granddaughter presented to the ER with the patient. He had gone to bed the previous night severity 9 PM and 12 PM was not having any symptoms. And when he woke up around 7:30 in the morning he was not able to use talk to anybody until he took his granddaughter to work. Test and the symptoms were noted around 1 PM. There is some improvement of speech this morning April 5: Overnight patient became delirious. Family was called in. Granddaughter at bedside. I saw the patient this morning. Up in a chair. Answering simple questions. Later patient became agitated confused. Haldol had to be ordered. I will order Risperdal 0.5 mg for night. Awaiting MRI. Active Medications Acetaminophen (Acetaminophen Tab 325 Mg Tab) 650 mg PO Q6HR PRN PRN Reason: Mild Pain or Fever > 100.5 Aspirin (Aspirin 81 Mg) 81 mg PO DAILY [facility] Last Admin: 04/28/24 08:37 Dose: 81 mg Atorvastatin Calcium (Atorvastatin 40 Mg Tab) 40 mg PO DAILY [facility] Last Admin: 04/28/24 08:37 Dose: 40 mg Calcium Carbonate/Glycine (Calcium Carbonate 500 Mg Chewable) 1,000 mg PO Q4HR PRN PRN Reason: Dyspepsia Clopidogrel Bisulfate (Clopidogrel 75 Mg Tab) 75 mg PO DAILY [facility] Last Admin: 04/28/24 08:37 Dose: 75 mg Dextrose/Water (Dextrose 50% Syringe 50 Ml) 25 ml IVP PER PROTOCOL PRN; Protocol PRN Reason: Hypoglycemia Dextrose/Water (Dextrose 50% Syringe 50 Ml) 50 ml IVP PER PROTOCOL PRN; Protocol PRN Reason: Hypoglycemia Enoxaparin Sodium (Enoxaparin 40 Mg/0.4 Ml Syringe) 40 mg SQ DAILY [facility] Last Admin: 04/28/24 08:37 Dose: 40 mg Sodium Chloride (Saline 0.9%) 1,000 mls @ 50 mls/hr IV .Q20H [facility] Last Admin: 04/28/24 08:44 Dose: Not Given Insulin Aspart (Insulin Aspart (Novolog) 100 Unit/Ml Vial) 0 unit SQ AC-TID [facility]; Protocol Last Admin: 04/28/24 11:41 Dose: Not Given Lactulose (Lactulose 20 Gm/30 Ml Cup) 20 gm PO DAILY PRN PRN Reason: Constipation Linagliptin (Linagliptin 5 Mg Tablet) 5 mg PO DAILY [facility] Last Admin: 04/28/24 08:37 Dose: 5 mg Lisinopril (Lisinopril 10 Mg Tab) 10 mg PO DAILY [facility] Last Admin: 04/28/24 08:37 Dose: 10 mg Lorazepam (Lorazepam 2 Mg/Ml Inj) 1 mg IV ONCE PRN PRN Reason: Anxiety Melatonin (Melatonin 3 Mg Tablet) 3 mg PO HS PRN PRN Reason: Insomnia Naloxone HCl (Naloxone 0.4 Mg/Ml 1 Ml Vial) 0.2 mg IV Q2M PRN PRN Reason: Opioid Reversal Ondansetron HCl (Ondansetron 4 Mg/2 Ml Vial) 4 mg IVP Q8HR PRN PRN Reason: Nausea And Vomiting Risperidone (Risperidone 0.5 Mg Tab) 0.5 mg PO HS [facility] Social history: Does use a cane. Lives alone. Former smoker. Physical examination: VITAL SIGNS: 97.7, 71, 18, 152 x 66, 100% room air GENERAL: Up in chair, slightly distant appearing EYES: Pupils equal. Conjunctiva zi l. HEENT: External appearance of nose and ears normal, oral cavity grossly normal. NECK: JVD not raised; masses not palpable. HEART: First and second heart sounds are normal; no edema. LUNGS: Respiratory rate normal; clear to auscultation. ABDOMEN: Soft, nontender, liver spleen not palpable, no masses palpable. PSYCH: Did answer some simple questions. MUSCULOSKELETAL:No Clubbing/cyanosis;muscles-grossly intact. OA NEUROLOGICAL: Cranial nerves grossly intact; no facial asymmetry, power and sensation grossly intact. Speech is slow. INVESTIGATIONS, reviewed in the clinical context: April 26: White count 4.1 hemoglobin 12.9 platelets 112 potassium 4.8 BUN 45 creatinine 1.62 Troponin I less than 0.012 x 3 LDL 76. TSH 0.608 EKG tracing personally reviewed by me-sinus bradycardia. Right bundle edgar block Chest x-ray film personally reviewed by me-borderline cardiomegaly CT scan angio brain and neck: Unremarkable CT brain without contrast: No acute process. Remote lacunar injuries along the end with nonspecific white matter changes. Assessment and plan: -Acute stroke likely lacunar. Primarily affecting the speech. Initial CT scan negative. Pending 2D echo MRI brain Aspirin. Lipitor. Plavix. Speech therapy Neurochecks. Neurology following. -Acute delirium likely from new surroundings and underlying stroke Was given 1 dose of 5 mg Haldol for agitation. Will start Risperdal 0.5 mg at night after 9 PM. -Diabetes mellitus type 2 on oral hypoglycemic Januvia. Hold glimepiride. Follow Accu-Cheks. -Essential hypertension Zestril -Hyperlipidemia Lipitor -DNR -Medical Ernie JOHNSON instructed not to wake up patient from 9 PM to 6 AM for vital signs. Until any change in clinical scenario. At Risperdal Past Medical History Past Medical History: Diabetes Mellitus, Hyperlipidemia, Hypertension History of Any Multi-Drug Resistant Organisms: None Reported Past Surgical History: No Surgical Hx Reported Past Anesthesia/Blood Transfusion Reactions: No Reported Reaction Past Psychological History: No Psychological Hx Reported Smoking Status: Former smoker Past Alcohol Use History: None Reported Past Drug Use History: None Reported
--- NOTE | 2024-04-28 12:48 | P.PN ---
Subjective Progress Note Date: 04/28/24 I am following-up with patient and per nurse, patient was agitated and restless overnight and early in morning today. 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 His granddaughter wanted him to be not disturbed as result. Objective - Vital Signs Vital signs: Vital Signs Temp 97.7 F 04/28/24 08:35 Pulse 90 04/28/24 11:43 Resp 15 04/28/24 11:43 BP 164/75 04/28/24 11:43 Pulse Ox 99 04/28/24 11:43 FiO2 Intake & Output 04/27/24 04/28/24 04/28/24 18:59 06:59 18:59 Intake Total 118 118 Balance 118 118 Weight 71 kg Intake: Oral 118 118 Other: Voiding Method Toilet Toilet Toilet Urinal Urinal Urinal # Voids 1 # Bowel Movements 1 - Exam General: Lying in bed and does not appear in acute distress. Neuro: Limited since sleeping. Was given Haldol recently. His granddaughter wanted him to be not disturbed since overnight he was agitated and restless and now just slept. Some of the workup during this hospital visit consisted of: Lipid panel is triglyceride 146, cholesterol 137, LDL 76 and HDL 31 TSH: 0.608 HbA1c: 7.1 CT of the head is reported as no acute intracranial process. Remote lacunar injury along with nonspecific white matter changes likely secondary due to chronic microangiopathy. I personally reviewed the CT and I agree there is no acute or subacute ischemic changes. CT angiography of the head and neck is reported as no evidence of dissection of cervical internal carotid artery or vertebral artery or any evidence of significant stenosis at the carotid bifurcation. No evidence of intracranial high-grade stenosis or intracranial aneurysm. No IV thrombolytics since the patient is outside the window. And the risk outweigh the benefit. - Labs CBC & Chem 7: 04/26/24 14:40 04/26/24 14:40 Labs: Abnormal Lab Results - Last 24 Hours (Table) 04/27/24 04/27/24 04/27/24 Range/Units 15:00 17:01 20:03 POC Glucose (mg/dL) 180 H 142 H (70-110) mg/dL Hemoglobin A1c 7.1 H (<=6.0) % 04/28/24 04/28/24 Range/Units 06:07 11:39 POC Glucose (mg/dL) 137 H 168 H (70-110) mg/dL Hemoglobin A1c (<=6.0) % Assessment and Plan Assessment: This is an 83-year-old gentleman who presents emergency department because of dysarthria and expressive aphasia Likely acute ischemic stroke (with symptoms of dysarthria and expressive aphasia). He continues to have dysarthria. No IV thrombolytic since outside window Agitated and restless overnight: Likely Delirium due to hospital induced. Diabetes mellitus Hypertension Plan: Patient states he was on aspirin 81 mg daily at home therefore I will resume the home medication and I started the patient on Plavix 75 mg daily. He is on Lipitor 40 mg daily. MRI of the brain without stroke protocol: Pending 2D echo is pending Continue neurochecks Cardiac monitoring PT OT and MANAGER DRUG SAFETY are consulted Is on Risperdal 0.5mg qhs started by primary team. With the rest of the medical management the primary team DVT prophylaxis: On Lovenox. The plan is discussed with his lisa who is at bedside and nurse. Time with Patient: Less than 30
[2024-04-28] MEDS: LORazepam 2 MG/ML INJ IV PRN (15:39)
--- NOTE | 2024-04-28 16:51 | MR ---
EXAMINATION TYPE: MR brain wo con DATE OF EXAM: 04/28/2024 4:36 PM CLINICAL INDICATION:Male, 83 years old with history of dysarthria. stroke; PHH, Dysarthria. Stroke. COMPARISON: 04/26/2024.. TECHNIQUE: Multi planar, multi sequence imaging was performed through the brain including: T1, T2, In version recovery, Diffusion weighted imaging, and gradient echo imaging. No gadolinium was given. FINDINGS: Mild cerebral atrophy with proportional dilation of ventricular system. Scattered foci of high T2 s ignal intensity are seen within the periventricular white matter. Midline structures show no abnormal ity. Diffusion-weighted imaging shows restricted diffusion in the left herman radiata.. The susceptib ility weighted images do not reveal any evidence for micro-hemorrhage. The bone marrow signal is within normal limits. Paranasal sinuses and mastoid air cells: No significant paranasal sinus disease. Visualized orbits: Orbital contents are intact. IMPRESSION: 1. Acute/subacute CVA involving the left herman radiata. 2. Nonspecific white matter changes, likely secondary to small vessel ischemic disease.
[2024-04-28 17:03] LABS: Glucose,Whole Blood 116 mg/dL (70-110)
--- NOTE | 2024-04-28 17:05 | CA ---
Transthoracic Echo Report Name: Danilo Mendoza Age: 83 Gender: M : 1940 Exam Date: 04/28/2024 14:09 Exam Location: [facility] Ht (in): 71 Wt (lb): 151 Ordering Physician: Bebo Virgen MD Attending/Referring Phys: Hydro Excavation Operator Julienne River RDCS Procedure CPT: Indications: stroke Cardiac Hx: Technical Quality: Fair Contrast 1: Total Dose (mL): Contrast 2: Total Dose (mL): MEASUREMENTS (Male / Female) Normal Values 2D ECHO LV Diastolic Diameter PLAX 4.9 cm 4.2 - 5.9 / 3.9 - 5.3 cm LV Systolic Diameter PLAX 3.6 cm IVS Diastolic Thickness 1.1 cm 0.6 - 1.0 / 0.6 - 0.9 cm LVPW Diastolic Thickness 1.7 cm 0.6 - 1.0 / 0.6 - 0.9 cm LV Relative Wall Thickness 0.6 RV Internal Dim ED PLAX 1.5 cm LA Systolic Diameter LX 3.3 cm 3.0 - 4.0 / 2.7 - 3.8 cm LV Diastolic Volume MOD BP 86.2 cm??? 67 - 155 / 56 - 104 cm??? LV Systolic Volume MOD BP 30.6 cm??? 22 - 58 / 19 - 49 cm??? LV Ejection Fraction MOD BP 64.5 % >= 55 % LV Cardiac Index MOD BP 1836.9 cm???/min???m??? LV Diastolic Volume MOD 4C 89.5 cm??? LV Systolic Volume MOD 4C 27.5 cm??? LV Ejection Fraction MOD 4C 69.3 % LV Cardiac Index MOD 4C 2050.1 cm???/min???m??? LV Diastolic Length 4C 7.4 cm LV Systolic Length 4C 6.1 cm LV Diastolic Volume MOD 2C 80.8 cm??? LV Systolic Volume MOD 2C 31.9 cm??? LV Ejection Fraction MOD 2C 60.6 % LV Cardiac Index MOD 2C 1615.7 cm???/min???m??? LV Diastolic Length 2C 7.7 cm LV Systolic Length 2C 6.6 cm M-MODE Aortic Root Diameter MM 3.5 cm LA Systolic Diameter MM 3.8 cm LA Ao Ratio MM 1.1 AV Cusp Separation MM 1.7 cm DOPPLER Mitral E Point Velocity 51.9 cm/s Mitral A Point Velocity 65.3 cm/s Mitral E to A Ratio 0.8 MV Deceleration Time 323.6 ms MV E' Velocity 5.6 cm/s Mitral E to MV E' Ratio 9.3 FINDINGS Left Ventricle Left ventricular ejection fraction is estimated at 55-60 %. Mildly increased septal wall thickness. Left ventricular cavity size normal. No obvious regional wall motion abnormalities. Right Ventricle Normal right ventricular size and function. Right ventricular systolic pressure within normal limits. Right Atrium Mild right atrial dilatation. Left Atrium Mild left atrial dilatation. Mitral Valve Structurally normal mitral valve. Mild mitral regurgitation. Myxomatous (redundant) mitral valve. Aortic Valve Trileaflet aortic valve. Thickened aortic valve without stenosis. Mild aortic regurgitation. Tricuspid Valve Structurally normal tricuspid valve. Mild tricuspid regurgitation. No tricuspid stenosis. Pulmonic Valve Structurally normal pulmonic valve. Trace pulmonic regurgitation. No pulmonic stenosis. Pericardium No pericardial effusion. Aorta Aorta at upper limits of normal. CONCLUSIONS 1. Normal left ventricular size and systolic function 2. 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 Mild aortic and tricuspid regurgitation Previewed by: Dr. Ashli Amaro MD (Electronically Signed) Final Date: 28 April 2024 17:04
[2024-04-28] MEDS: risperiDONE 0.5 MG TAB PO SCH (22:28)
[2024-04-29 06:44] LABS: Glucose,Whole Blood 134 mg/dL (70-110)
[2024-04-29 06:48] VITALS: RESP 16
[2024-04-29 09:00] VITALS: TEMP 97.6
[2024-04-29 10:55] VITALS: BP 166/69; PULSE 65
[2024-04-29 11:45] LABS: Glucose,Whole Blood 387 mg/dL (70-110)
--- NOTE | 2024-04-29 14:59 | P.PN ---
Subjective Progress Note Date: 04/29/24 I am following-up with patient and he is more cooperative and not agitated. He feels he is doing better. Objective - Vital Signs Vital signs: Vital Signs Temp 97.6 F 04/29/24 08:00 Pulse 65 04/29/24 10:54 Resp 16 04/29/24 10:54 BP 166/69 04/29/24 10:54 Pulse Ox 99 04/29/24 10:54 FiO2 Intake & Output 04/28/24 04/29/24 04/29/24 18:59 06:59 18:59 Intake Total 118 358 Balance 118 358 Intake: Oral 118 358 Other: Voiding Method Toilet Toilet Urinal Urinal # Voids 2 2 # Bowel Movements 1 - Exam General: Lying in bed and does not appear in acute distress. Neuro: Is sleeping initially but was wakeable to voice. Is oriented to self and place. Is following simple commands. +ve dysarthria. Some of the workup during this hospital visit consisted of: Lipid panel is triglyceride 146, cholesterol 137, LDL 76 and HDL 31 TSH: 0.608 HbA1c: 7.1 CT of the head is reported as no acute intracranial process. Remote lacunar injury along with nonspecific white matter changes likely secondary due to chronic microangiopathy. I personally reviewed the CT and I agree there is no acute or subacute ischemic changes. CT angiography of the head and neck is reported as no evidence of dissection of cervical internal carotid artery or vertebral artery or any evidence of significant stenosis at the carotid bifurcation. No evidence of intracranial high-grade stenosis or intracranial aneurysm. MRI brain is reported as acute/subacute cva involving the left herman radiata. 2D echo: Normal left ventricular size and systolic function. 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 - Labs CBC & Chem 7: 04/26/24 14:40 04/26/24 14:40 Labs: Abnormal Lab Results - Last 24 Hours (Table) 04/28/24 04/29/24 04/29/24 Range/Units 17:02 06:43 11:41 POC Glucose (mg/dL) 116 H 134 H 387 H (70-110) mg/dL Assessment and Plan Assessment: This is an 83-year-old gentleman who presents emergency department because of dysarthria and expressive aphasia Acute ischemic stroke over the left herman radiata (with symptoms of dysarthria and expressive aphasia). He continues to have dysarthria. No IV thrombolytic since outside window. On 2D echo has Myxomatous mitral valve. Agitated and restless overnight: Likely Delirium due to hospital induced. Diabetes mellitus Hypertension Plan: Patient states he was on aspirin 81 mg daily at home therefore I will resume the home medication and I started the patient on Plavix 75 mg daily. He is on Lipitor 40 mg daily. On 2D echo has Myxomatous mitral valve. Recommend cardiology consultation. Continue neurochecks Cardiac monitoring PT OT and GROUNDS SUPERVISOR are consulted Is on Risperdal 0.5mg qhs started by primary team. With the rest of the medical management the primary team DVT prophylaxis: On Lovenox. Recommend the patient to follow-up with neurologist as outpatient within 2-3 weeks. The plan is discussed with primary team. Time with Patient: Less than 30
--- NOTE | 2024-04-29 15:57 | P.DS ---
Providers Date of admission: 04/26/24 16:45 Expected date of discharge: 04/29/24 Attending physician: Ever Briceno Consults: 04/26/24 16:42 Consult Physician Routine Consulting Provider: Bebo Virgen Consult Reason/Comments: Dysarthria, stroke versus TIA Do you want consulting provider notified?: Yes Primary care physician: [facility] Course: Chief Complaint: Change in speech This is a pleasant 83-year-old patient, follows with Dr. Ricardo. Chronic stable medical conditions include diabetes, hypertension, hyperlipidemia. Patient is accompanied by his neighbor who helps him in the room. Patient was noted to have a speech of that was discovered yesterday. No change in vision headache or focal weakness or change in walking. Normally has a bowel movement every other day. Sleeping well. It was unclear if the time when this occurred. Granddaughter presented to the ER with the patient. He had gone to bed the previous night severity 9 PM and 12 PM was not having any symptoms. And when he woke up around 7:30 in the morning he was not able to use talk to anybody until he took his granddaughter to work. Test and the symptoms were noted around 1 PM. There is some improvement of speech this morning April 28: Overnight patient became delirious. Family was called in. Granddaughter at bedside. I saw the patient this morning. Up in a chair. Answering simple questions. Later patient became agitated confused. Haldol had to be ordered. I will order Risperdal 0.5 mg for night. Awaiting MRI. April 29: MRI did confirm a stroke. Patient slept well. He ate well. He was ambulated in the hallway. Did well. 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 Spoke to the son over the phone. Have patient follow-up with cardiology outpatient without any further intervention. Patient to take Plavix for 3 weeks and continue with aspirin. Zestril increased to 20 mg a day Discussion and discharge planning more than 35 minutes Social history: Does use a cane. Lives alone. Former smoker. Physical examination: VITAL SIGNS: 97.6, 65, 16, 155 x 70, 100% room air GENERAL: Comfortable EYES: Pupils equal. Conjunctiva zi l. HEENT: External appearance of nose and ears normal, oral cavity grossly normal. NECK: JVD not raised; masses not palpable. HEART: First and second heart sounds are normal; no edema. LUNGS: Respiratory rate normal; clear to auscultation. ABDOMEN: Soft, nontender, liver spleen not palpable, no masses palpable. PSYCH: Did answer some simple questions. MUSCULOSKELETAL:No Clubbing/cyanosis;muscles-grossly intact. OA NEUROLOGICAL: Cranial nerves grossly intact; no facial asymmetry, power and sensation grossly intact. Speech is slow. INVESTIGATIONS, reviewed in the clinical context: 2D echocardiogram: EF 55 to 60%. Myxomatous mitral valve MRI brain [acute/subacute stroke involving the left herman radiata. Nonspecific white matter changes. April 26: White count 4.1 hemoglobin 12.9 platelets 112 potassium 4.8 BUN 45 creatinine 1.62 Troponin I less than 0.012 x 3 LDL 76. TSH 0.608 EKG tracing personally reviewed by me-sinus bradycardia. Right bundle edgar block Chest x-ray film personally reviewed by me-borderline cardiomegaly CT scan angio brain and neck: Unremarkable CT brain without contrast: No acute process. Remote lacunar injuries along the end with nonspecific white matter changes. Assessment and plan: -Acute stroke l affecting the left herman radiata. Only affecting the speech Initial CT scan negative. MRI brain showed stroke involving the left herman radiata. Aspirin. Lipitor. Plavix-3 weeks. Speech therapy Patient seen by Dr. Virgen from neurology Outpatient follow-up with Dr. 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 Follow-up cardiology outpatient. Dr. Tom further intervention -Diabetes mellitus type 2 on oral hypoglycemic Januvia. glimepiride. -Essential hypertension Zestril -Hyperlipidemia Lipitor -DNR -Medical Ernie JOHNSON Disposition: Home Past Medical History Past Medical History: Diabetes Mellitus, Hyperlipidemia, Hypertension History of Any Multi-Drug Resistant Organisms: None Reported Past Surgical History: No Surgical Hx Reported Past Anesthesia/Blood Transfusion Reactions: No Reported Reaction Past Psychological History: No Psychological Hx Reported Smoking Status: Former smoker Past Alcohol Use History: None Reported Past Drug Use History: None Reported Plan - Discharge Summary New Discharge Prescriptions: New Aspirin 81 mg PO DAILY tab lisinopriL [Zestril] 20 mg PO DAILY #30 tab Clopidogrel [Plavix] 75 mg PO DAILY #21 tab risperiDONE [RisperDAL] 0.5 mg PO HS #30 tab Continue sitaGLIPtin [Januvia] 50 mg PO DAILY Glimepiride 2 mg PO W/BRKFST Sildenafil [Revatio] 20 mg PO DAILY PRN PRN Reason: E.D. Atorvastatin [Lipitor] 40 mg PO DAILY Discontinued lisinopriL [Zestril] 10 mg PO DAILY Discharge Medication List Glimepiride 2 mg PO W/BRKFST 08/16/16 [History] sitaGLIPtin [Januvia] 50 mg PO DAILY 08/16/16 [History] Sildenafil [Revatio] 20 mg PO DAILY PRN 01/12/23 [History] Atorvastatin [Lipitor] 40 mg PO DAILY 04/26/24 [History] Aspirin 81 mg PO DAILY tab 04/29/24 [Rx] Clopidogrel [Plavix] 75 mg PO DAILY #21 tab 04/29/24 [Rx] lisinopriL [Zestril] 20 mg PO DAILY #30 tab 04/29/24 [Rx] risperiDONE [RisperDAL] 0.5 mg PO HS #30 tab 04/29/24 [Rx] Follow up Appointment(s)/Referral(s): Georges Ricardo DO [Primary Care Provider] - 1-2 days (CALL AND MAKE RENNY! (PCP)) Nasra Nash MD [REFERRING] - 10 Days (CALL AND MAKE RENNY! (BRAIN DOCTOR) ) Patient Instructions/Handouts: Ischemic Stroke (DC) Discharge Disposition: HOME SELF-CARE
== END 2024-04-29 14:27 | disposition home or self-care (01) | DRG 65 ==
LOC: EC 14:02 → 3SCARD 16:45
PROVIDERS: ADMIT Hospitalist; ATTEND Hospitalist
DX: I63.81 Other cerebral infarction due to occlusion or stenosis of small artery (principal); F05 Delirium due to known physiological condition; I10 Essential (primary) hypertension; R47.01 Aphasia; E78.5 Hyperlipidemia, unspecified; R47.1 Dysarthria and anarthria; E11.9 Type 2 diabetes mellitus without complications; I08.3 Combined rheumatic disorders of mitral, aortic and tricuspid valves; Z66 Do not resuscitate; Z79.02 Long term (current) use of antithrombotics/antiplatelets; Z79.82 Long term (current) use of aspirin; Z79.84 Long term (current) use of oral hypoglycemic drugs; Z79.899 Other long term (current) drug therapy; Z87.891 Personal history of nicotine dependence
CPT/HCPCS: 36415; 70450; 70496; 70498; 70551; 71046; 80053; 80061; 82550; 83036; 84443; 84484; 85025; 85610; 85730; 93005; 93306; 99291

== ENCOUNTER 2025-04-20 13:05 | Emergency (ER) | payer MEDICARE ==
[2025-04-20 13:29] VITALS: RESP 16
--- NOTE | 2025-04-20 13:29 | ED ---
General Adult HPI - General Stated complaint: Abn Labs Time Seen by Provider: 04/20/25 13:24 Source: patient, family Mode of arrival: wheelchair Limitations: no limitations - History of Present Illness Initial comments: Dictation was produced using [employer] dictation software. please excuse any grammatical, word or spelling errors. Chief Complaint: 84-year-old male presents emergency department altered mental status History of Present Illness: Patient is an 84-year-old male brought to the emergency department by [id number]. Patient has been altered for the last 2 to 3 days. Was seen at home by PT nurse. Patient had home nurse evaluate patient and they were concerned he had a UTI due to altered mentation is a history of dementia. Has been less responsive. There is some concern because patient usually resist coming to the ER however this time he wanted to come. The ROS documented in this emergency department record has been reviewed and confirmed by me. Those systems with pertinent positive or negative responses have been documented in the HPI. All other systems are other negative and/or noncontributory. - Related Data Home Medications Medication Instructions Recorded Confirmed Glimepiride 2 mg PO W/BRKFST 08/16/16 04/26/24 sitaGLIPtin [Januvia] 50 mg PO DAILY 08/16/16 04/26/24 Sildenafil [Revatio] 20 mg PO DAILY PRN 01/12/23 04/26/24 Atorvastatin [Lipitor] 40 mg PO DAILY 04/26/24 04/26/24 Previous Rx's Medication Instructions Recorded Aspirin 81 mg PO DAILY tab 04/29/24 Clopidogrel [Plavix] 75 mg PO DAILY #21 tab 04/29/24 lisinopriL [Zestril] 20 mg PO DAILY #30 tab 04/29/24 risperiDONE [RisperDAL] 0.5 mg PO HS #30 tab 04/29/24 Allergies Allergy/AdvReac Type Severity Reaction Status Date / Time No Known Allergies Allergy Verified 04/26/24 15:29 Review of Systems ROS Statement: Those systems with pertinent positive or pertinent negative responses have been documented in the HPI. ROS Other: All systems not noted in ROS Statement are negative. Past Medical History Past Medical History: Diabetes Mellitus, Hyperlipidemia, Hypertension History of Any Multi-Drug Resistant Organisms: None Reported Past Surgical History: No Surgical Hx Reported Past Anesthesia/Blood Transfusion Reactions: No Reported Reaction Past Psychological History: No Psychological Hx Reported Smoking Status: Former smoker, Never smoker Past Alcohol Use History: None Reported Past Drug Use History: None Reported General Exam - General Exam Comments Initial Comments: PHYSICAL EXAM: General Impression: Alert and oriented x3, not in acute distress HEENT: Normocephalic atraumatic, extra-ocular movements intact, pupils equal and reactive to light bilaterally, mucous membranes moist. Cardiovascular: Heart regular rate and rhythm Chest: Able to complete full sentences, no retractions, no tachypnea Abdomen: abdomen soft, non-tender, non-distended, no organomegaly Musculoskeletal: Pulses present and equal in all extremities, no peripheral edema Motor: no focal deficits noted Neurological: CN II-XII grossly intact, no focal motor or sensory deficits noted Skin: Intact with no visualized rashes Psych: Normal affect and mood Limitations: no limitations Course Vital Signs 04/20/25 04/20/25 13:25 14:47 Temperature 97.6 F Pulse Rate 95 58 L Respiratory 16 16 Rate Blood Pressure 93/46 121/44 O2 Sat by Pulse 99 100 Oximetry Medical Decision Making - Medical Decision Making Was pt. sent in by a medical professional or institution (, PA, EYE SPECIALIST, urgent care, hospital, or [facility]...) When possible be specific @ -No Did you speak to anyone other than the patient for history (EMS, parent, family, police, friend...)? What history was obtained from this source @ -[id number] as described above Did you review nursing and triage notes (agree or disagree)? Why? @ -I reviewed and agree with nursing and triage notes Were old charts reviewed (outside hosp., previous admission, EMS record, old EKG, old radiological studies, urgent care reports/EKG's, [facility] records)? Report findings @ -No old charts were reviewed Differential Diagnosis (chest pain, altered mental status, abdominal pain women, abdominal pain men, vaginal bleeding, musculoskeletal, weakness, fever, dyspnea, syncope, headache, dizziness, GI bleed, back pain, seizure, CVA, palpatations, mental health)? @ -Differential Altered Mental Status: Hypoglycemia, DKA, hypercapnia, ETOH, overdose, CO poisoning, trauma, myxedema coma, HTN encephalopathy, infection, encephalitis, psychosis, intercranial hemorrhage, hepatic encephalopathy, meningitis, CVA, this is not meant to be an all-inclusive list EKG interpreted by me (3pts min.). @ -My EKG interpretation: Ventricular rate 57, sinus bradycardia, KS 160, cures 133, QTc 4 9. No KS prolongation, no QTC prolongation, no ST or T-wave changes noted. Overall, this EKG is unremarkable X-rays interpreted by me (1pt min.). @ -Chest x-ray shows no acute processes CT interpreted by me (1pt min.). @ -CT brain shows no acute processes U/S interpreted by me (1pt. min.). @ -None done What testing was considered but not performed or refused? (CT, X-rays, U/S, labs)? Why? @ -None What meds were considered but not given or refused? Why? @ -None Was smoking cessation discussed for >3mins.? @ -No Were there social determinants of health that impacted care today? How? (Homeles sness, low income, unemployed, alcoholism, drug addiction, transportation, low edu. Level, literacy, decrease access to med. care, fdc, rehab)? @ -No Was there de-escalation of care discussed even if they declined (Discuss DNR or withdrawal of care, Hospice)? DNR status @ -No What co-morbidities impacted this encounter? (DM, HTN, Smoking, COPD, CAD, Cancer, CVA, ARF, Chemo, Hep., AIDS, mental health diagnosis, sleep apnea, morbid obesity)? @ -Dementia Was patient admitted / discharged? Hospital course, mention meds given and route, prescriptions, significant lab abnormalities, going to OR and other pertinent info. @ -84-year-old male brought in by [id number] for altered mental status. Vital signs stable. Physical examination is benign. Patient well-appearing in no acute distress he does have a history of dementia. Laboratory evaluation obtained. CBC shows no acute processes. Metabolic panel shows slight elevation of renal markers. Urinalysis negative. Patient given IV fluids. Labs imaging results were discussed with patient and family member. Be discharged advised increased hydration. Otherwise told to follow-up with primary care doctor. Did you discuss the management of the patient with other professionals (professionals i.e. , PA, EYE SPECIALIST, lab, RT, psych nurse, certified social workers in health care, customer support representative, teacher, radiation safety officer, incident response manager)? Give summary @ -No Was critical care preformed (if so, how long)? @ -No Undiagnosed new problem with uncertain prognosis? @ -No Drug Therapy requiring intensive monitoring for toxicity (Heparin, Nitro, Insulin, Cardizem)? @ -No Were any procedures done? @ -No Diagnosis/symptom? Acute, or Chronic, or Acute on Chronic? Uncomplicated (without systemic symptoms) or Complicated (systemic symptoms)? @ -Altered mental status Side effects of treatment? @ -No Exacerbation, Progression, or Severe Exacerbation? @ -No Poses a threat to life or bodily function? How? (Chest pain, USA, DE, pneumonia, PE, COPD, DKA, ARF, appy, cholecystitis, CVA, Diverticulitis, Homicidal, Suicidal, threat to staff... and all critical care pts) @ -yes - Lab Data Result diagrams: 04/20/25 13:59 04/20/25 13:59 Lab Results 04/20/25 04/20/25 04/20/25 Range/Units 13:59 13:59 13:59 WBC 8.48 (4.50-10.00) 10*3/uL RBC 3.95 L (4.40-5.60) 10*6/uL Hgb 11.8 L (13.0-17.0) g/dL Hct 34.9 L (39.6-50.0) % MCV 88.4 (80.0-97.0) fL MCH 29.9 (27.0-32.0) pg MCHC 33.8 (32.0-37.0) g/dL Plt Count 137 L (140-440) 10*3/uL MPV 12.7 H (9.5-12.2) fL Immature Gran % (Auto) 0.4 % Neutrophils % 73.7 % Lymphocytes % 13.4 % Monocytes % 8.6 % Eosinophils % 3.4 % Basophils % 0.5 % Immature Gran # 0.03 (0.00-0.04) 10*3/uL Neutrophils # 6.25 (1.80-7.70) 10*3/uL Lymphocytes # 1.14 (0.90-5.00) 10*3/uL Monocytes # 0.73 (0.20-1.00) 10*3/uL Eosinophils # 0.29 (0.04-0.35) 10*3/uL Basophils # 0.04 (0.00-0.10) 10*3/uL Sodium 141 (137-145) mmol/L Potassium 4.8 (3.5-5.1) mmol/L Chloride 103 (98-107) mmol/L Carbon Dioxide 25 (22-30) mmol/L Anion Gap 13 mmol/L BUN 77 H (9-20) mg/dL Creatinine 2.66 H (0.66-1.25) mg/dL Est GFR (CKD-EPI)AfAm 24 (>60 ml/min/1.73 sqM) Est GFR (CKD-EPI)NonAf 21 (>60 ml/min/1.73 sqM) Glucose 150 H (74-99) mg/dL Calcium 11.8 H (8.4-10.2) mg/dL Magnesium 1.8 (1.6-2.3) mg/dL Total Bilirubin 0.4 (0.2-1.3) mg/dL AST 17 (17-59) U/L ALT 14 (4-49) U/L Alkaline Phosphatase 74 (38-126) U/L Total Protein 6.6 (6.3-8.2) g/dL Albumin 4.3 (3.5-5.0) g/dL Urine Color Light Yellow Urine Appearance Clear (Clear) Urine pH 5.0 (5.0-8.0) Ur Specific [place] 1.019 (1.001-1.035) Urine Protein Negative (Negative) Urine Glucose (UA) Negative (Negative) Urine Ketones Negative (Negative) Urine Blood Negative (Negative) Urine Nitrite Negative (Negative) Urine Bilirubin Negative (Negative) Urine Urobilinogen <2.0 (<2.0) mg/dL Ur Leukocyte Esterase Negative (Negative) Disposition Clinical Impression: Altered mental status Disposition: HOME SELF-CARE Condition: Fair Instructions (If sedation given, give patient instructions): Altered Mental Status (ED) Is patient prescribed a controlled substance at d/c from ED?: No Referrals: Georges Ricardo DO [Primary Care Provider] - 1-2 days Time of Disposition: 15:25
[2025-04-20 14:08] LABS: Appearance,Urine Clear (Clear); Bilirubin,Urine Negative (Negative); Blood,Urine Negative (Negative); Color,Urine Light Yellow; Glucose,Urine (UA) Negative (Negative); Ketones,Urine Negative (Negative); Leukocyte Esterase,Urine Negative (Negative); Nitrite,Urine Negative (Negative); Protein,Urine Negative (Negative); Specific Gravity,Urine 1.019 (1.001-1.035); Urobilinogen,Urine <2.0 mg/dL (<2.0)
[2025-04-20 14:09] LABS: Basophils # (A) 0.04 10*3/uL (0.00-0.10); Basophils % (A) 0.5 %; Eosinophils # (A) 0.29 10*3/uL (0.04-0.35); Eosinophils % (A) 3.4 %; HCT 34.9 % (39.6-50.0); HGB 11.8 g/dL (13.0-17.0); Lymphocytes # (A) 1.14 10*3/uL (0.90-5.00); Lymphocytes % (A) 13.4 %; MCH 29.9 pg (27.0-32.0); MCHC 33.8 g/dL (32.0-37.0); MCV 88.4 fL (80.0-97.0); Mean Platelet Volume 12.7 fL (9.5-12.2); Monocytes # (A) 0.73 10*3/uL (0.20-1.00); Monocytes % (A) 8.6 %; Neutrophils # (A) 6.25 10*3/uL (1.80-7.70); Neutrophils % (A) 73.7 %; Platelet Count 137 10*3/uL (140-440); RBC 3.95 10*6/uL (4.40-5.60); RDW 12.6 % (11.5-14.5); WBC 8.48 10*3/uL (4.50-10.00)
[2025-04-20 14:20] LABS: African American GFR (CKD) 24 (>60 ml/min/1.73 sqM); Anion Gap 13 mmol/L; Blood Urea Nitrogen 77 mg/dL (9-20); Carbon Dioxide 25 mmol/L (22-30); Chloride 103 mmol/L (98-107); Glucose 150 mg/dL (74-99); Potassium 4.8 mmol/L (3.5-5.1); Sodium 141 mmol/L (137-145)
[2025-04-20 14:21] LABS: ALT 14 U/L (4-49); AST 17 U/L (17-59); Albumin 4.3 g/dL (3.5-5.0); Alkaline Phosphatase 74 U/L (38-126); Calcium 11.8 mg/dL (8.4-10.2); Magnesium 1.8 mg/dL (1.6-2.3); Non-African American GFR(CKD) 21 (>60 ml/min/1.73 sqM); Total Bilirubin 0.4 mg/dL (0.2-1.3); Total Protein 6.6 g/dL (6.3-8.2)
--- NOTE | 2025-04-20 14:49 | CT ---
EXAMINATION TYPE: CT brain wo con CT DLP: 1093.4 mGycm, Automated exposure control for dose reduction was used. DATE OF EXAM: 04/20/2025 2:45 PM COMPARISON: MRI brain 04/28/2024, 07/04/2018, CT brain 04/26/2024, 08/16/2016, CTA head and neck 04/26/2024, 08/16/2016 CLINICAL INDICATION:Male, 84 years old with history of ams, AMS. TECHNIQUE: Brain: Multiple axial CT images of the brain were obtained without IV contrast. . Coronal and sagitta l reformats reviewed. FINDINGS: Brain: Extra-axial spaces: No abnormal extra-axial fluid collections. Ventricular system: Dilatation in proportion to cerebral atrophy. Cerebral parenchyma: Cerebral atrophy. No acute intraparenchymal hemorrhage or mass effect. The crowley -white junction is well differentiated. Scattered hypoattenuating areas are seen within the periventr icular white matter. Remote lacunar injuries within the left herman radiata and left thalamus. Cerebellum: Unremarkable. Mass effect: No evidence of midline shift. Intracranial vasculature: Atherosclerotic calcifications of the intracranial vessels. Soft tissues: Normal. Calvarium/osseous structures: No depressed skull fracture. Paranasal sinuses and mastoid air cells: Clear Visualized orbits: Orbital contents are intact. IMPRESSION: 1. No acute intracranial process. 2. Remote lacunar injuries along with nonspecific white matter changes likely secondary to chronic mi croangiopathy. [facility], , 04/20/2025 2:47 PM
--- NOTE | 2025-04-20 14:49 | XR ---
EXAMINATION TYPE: XR chest 1V portable DATE OF EXAM: 04/20/2025 2:35 PM COMPARISON: Chest radiographs from 04/26/2024. CLINICAL INDICATION: Male, 84 years old with history of ams; TECHNIQUE: XR chest 1V portable Frontal view of the chest. FINDINGS: Lungs/Pleura: There is no evidence of pleural effusion, focal consolidation, or pneumothorax. Skin fo ld projecting over the left hemithorax laterally. Pulmonary vascularity: Unremarkable. Heart/mediastinum: Cardiomediastinal silhouette is unremarkable. Musculoskeletal: No acute osseous pathology. IMPRESSION: No acute cardiopulmonary disease/process. [facility], , 04/20/2025 2:46 PM
[2025-04-20] MEDS: SODIUM CHLORIDE 0.9% 1,000 ML IV STA (15:01)
[2025-04-20 16:38] VITALS: BP 116/72; PULSE 71; TEMP 97.8
== END 2025-04-20 16:38 | disposition home or self-care (01) ==
LOC: EC 13:05
DX: R41.82 Altered mental status, unspecified (principal); F03.90 Unspecified dementia, unspecified severity, without behavioral disturbance, psychotic disturbance, mood disturbance, and anxiety; Z87.891 Personal history of nicotine dependence
CPT/HCPCS: 36415; 70450; 71045; 80053; 81003; 83735; 85025; 93005; 96360; 99284